=== PATIENT | male | born 1975 | race Caucasian/White ===

== ENCOUNTER 2020-07-09 12:17 | Outpatient (REF) | payer OTHER, SELFPAY ==
[2020-07-09 14:18] LABS: MANUAL DIFF FLAG NO
[2020-07-09 14:25] LABS: Basophils Percent Auto 0.7 % (0-2); Eosinophils Absolute Auto 0.1 X10*3/uL (0.0-0.4); Eosinophils Percent Auto 1.9 % (0-4); Hematocrit 46.2 % (42-52); Hemoglobin 16.3 g/dl (14.0-18.0); Imm Gran Abs Auto 0.02 X10*3/uL (0.00-0.03); Imm Gran Pct Auto 0.4 % (0.0-0.4); Lymphocytes Absolute Auto 1.7 X10*3/uL (1.2-4.9); Lymphocytes Percent Auto 29.7 % (20-40); Mean Corpuscular HGB Conc 35.3 g/dl (31.0-36.0); Mean Corpuscular Hemoglobin 30.9 pg (27.0-33.0); Mean Corpuscular Volume 87.7 fL (80-98); Mean Platelet Volume 9.9 fL (9.4-12.4); Monocytes Absolute Auto 0.6 X10*3/uL (0.1-1.2); Monocytes Percent Auto 9.7 % (2-11); Neutrophils Absolute Auto 3.3 X10*3/uL (2.0-8.3); Neutrophils Percent Auto 57.6 % (45-73); Platelet Count 325 X10*3/uL (160-400); Red Blood Count 5.27 X10*6/uL (4.60-5.80); Red Cell Distribution Width 12.2 % (11.0-16.0); White Blood Count 5.7 X10*3/uL (4.8-10.8)
[2020-07-09 14:29] LABS: Glucose Urine UA NEG (NEG); Leukocyte Esterase Urine NEG (NEG); Nitrite Urine NEG (NEG); PH 5.5 (5.0-8.0); Specific Gravity - Urine >= 1.030 (1.005-1.025); Urine Blood 1+ (NEG); Urine Ketones NEG (NEG); Urine Protein NEG (NEG-TRACE)
[2020-07-09 14:31] LABS: Appearance Urine CLEAR; Color Urine YELLOW
[2020-07-09 15:01] LABS: Alanine Aminotransferase 69 U/L (0-40); Albumin Level 4.7 g/dL (3.5-5.0); Alkaline Phosphatase 75 U/L (39-117); Anion Gap 14 (12-20); Aspartate Amino Transferase 36 U/L (5-37); Bilirubin Total 0.8 mg/dL (0.0-1.0); Blood Urea Nitrogen 13 mg/dL (9-16); Calcium 9.7 mg/dL (8.4-10.2); Carbon Dioxide 26 mmol/L (22-29); Chloride 104 mmol/L (96-108); Cholesterol 216 mg/dL; Estimated Glomerular Filt Rate > 60; Glucose Random 77 mg/dL (60-115); HDL Cholesterol 32 mg/dL; LDL Cholesterol Calculated 152 mg/dl; Potassium 4.2 mmol/l (3.3-5.1); Sodium 140 mmol/L (135-145); Total Protein 7.3 g/dL (6.5-8.0); Triglycerides 162 mg/dL
[2020-07-09 15:08] LABS: Mucus Urine 1+ /LPF; RBC Urine 0-2 /HPF (0); WBC Urine 0 /HPF (0-4)
== END 2020-07-09 12:18 | disposition home or self-care (01) ==
LOC: HO.10HDL 12:17
PROVIDERS: Visit Provider Internal Medicine
DX: Z00.00 Encounter for general adult medical examination without abnormal findings (principal); Z13.220 Encounter for screening for lipoid disorders
CPT/HCPCS: 36415; 80053; 80061; 81001; 85025

== ENCOUNTER 2020-07-13 09:23 | Outpatient (REF) | payer OTHER, SELFPAY | END 2020-07-13 09:24 | disposition home or self-care (01) | LOC: HO.LAB 09:23 | PROVIDERS: Visit Provider Internal Medicine | DX: Z20.822 Contact with and (suspected) exposure to COVID-19 (principal) | CPT/HCPCS: 36415; C9803; U0003 ==

== ENCOUNTER → 2020-10-02 14:53 | Outpatient (BNVA) | payer OTHER, SELFPAY | PROVIDERS: PCP Internal Medicine; Visit Provider Internal Medicine ==

== ENCOUNTER 2020-10-30 15:07 | Outpatient (REF) | payer OTHER, SELFPAY ==
[2020-10-30 15:31] LABS: COVID-19 Test Negative (Negative)
== END 2020-10-30 15:08 | disposition home or self-care (01) ==
LOC: HO.LAB 15:07
PROVIDERS: Visit Provider Internal Medicine
DX: Z20.822 Contact with and (suspected) exposure to COVID-19 (principal)
CPT/HCPCS: 36415; 87635; C9803

== ENCOUNTER 2020-11-06 20:03 | Emergency (ER) | payer OTHER, SELFPAY ==
--- NOTE | ~2020-11-06 | XR_ITS ---
EXAMINATION: XR TIBIA AND FIBULA, LEFT CLINICAL INFORMATION: Fall with pain in the mid tibia. COMPARISON: None TECHNIQUE: AP and lateral views of the left tibia and fibula were obtained. FINDINGS: No fracture of the left tibia or fibula. No focal soft tissue swelling. No radiopaque foreign body. The knee and ankle are grossly unremarkable. XR/XR tibia fibula LT 2V IMPRESSION: Normal left tibia and fibula.
[2020-11-06 20:45] VITALS: BP 135/94; PULSE 74; RESP 16; TEMP 36.7; O2SAT 97; BMI 33.0
--- NOTE | 2020-11-06 22:20 | ED.LOWEXIN ---
HPI - Extremity Injury (Lower) General Chief Complaint: Extremity Injury, Lower Stated Complaint: fall Time Seen by Provider: 11/06/20 22:05 Source: patient Mode of arrival: ambulatory Limitations: no limitations History of Present Illness HPI Narrative: Patient comes emergency room complaining of left britton pain. This evening, patient tripped over some weights that where on his basement. Patient notice bruising swelling and abrasions on his left leg. Patient states the pain is not very intense. Patient states that his made him come. Related Data Home Medications Medication Instructions Recorded Confirmed No Known Home Meds 10/02/20 10/02/20 Allergies Allergy/AdvReac Type Severity Reaction Status Date / Time No Known Allergies Allergy Verified 10/02/20 15:41 [No Known Allergies*] Review of Systems Review of Systems: Constitutional : No Weight loss, No Fever, No Chills, No Night Sweats, No Fatigue, No Malaise ENT/Mouth : No Hearing loss, No Ear Pain, No Nasal Congestion, No Sinus Pain, No Hoarseness, No sore throat, No Rhinorrhea, No Swallowing Difficulty Eyes: No Eye Pain, No Swelling, No Redness, No Foreign Body, No Discharge, No Vision Changes Cardiovascular : No Chest Pain, No SOB, No Dyspnea on Exertion, No Orthopnea, No Edema, No Palpitations Respiratory : No Cough, No Sputum, No Wheezing, No Smoke Exposure, No Dyspnea Gastrointestinal : No Nausea, No Vomiting, No Diarrhea, No Constipation, No abdominal Pain, No Hematochezia, No Melena Genitourinary : no irregular bleeding, No Dysuria, No Urinary Frequency, No Hematuria, No Urinary Incontinence, No Urgency, No Flank Pain, No Urinary Flow Changes, No Hesitancy Musculoskeletal : Left britton pain,, No Myalgias, No Joint Swelling Skin : Multiple ecchymosis and small abrasions to the left leg Neuro : No Weakness, No Numbness, No Paresthesias, No Loss of Consciousness, No Dizziness, No Headache Psych : No Anxiety/Panic, No Depression, No SI/HI/AH/VH, No Social Issues, Heme/Lymph: No Bruising, No Bleeding,No Lymphadenopathy Endocrine : No Polyuria, No Polydipsia, No Temperature Intolerance PMFSH Past Medical History Medical History Obesity AL (obstructive sleep apnea) Social History Social History Advance Directives: No Advance Directives Information Provided: Yes Physical Exam Vital Signs: Vital Signs: Last Vital Signs Temp 98.1 F 11/06/20 20:45 Pulse 74 11/06/20 20:45 Resp 16 11/06/20 20:45 BP 135/94 H 11/06/20 20:45 Pulse Ox 97 11/06/20 20:45 Body Mass Index 33.0 Appearance: Alert. Oriented X3. No acute distress. Eyes: Pupils equal, round and reactive to light. ENT: Pharynx normal. Neck: Normal inspection. Neck supple. No lymph nodes noted. No crepitus CVS: Normal heart rate and rhythm. Pulses normal. Normal S1 and S2 Respiratory: No respiratory distress. Breath sounds normal. No Wheezing. No rales Abdomen: Soft and nontender. No rigidity. No distention. good BS x4 Skin: Skin warm and dry. Febrile 3 cm ecchymosis to the left britton, no significant tenderness to palpation over the tibial surface Extremities: Mild edema to the anterior aspect of the left lower extremity distal aspect, no calf tenderness, no knee or ankle pain. Neuro: Oriented X 3. No motor deficit. No sensory deficit. Moving all extermities. No slurred speech. Course Course Course Narrative: I discussed the x-ray with the patient, no fracture. MDM - Extremity Injury (Lower) Imaging Data Tibia fibula x-ray: Radiologist's impression: No fracture of the left tibia or fibula. No focal soft tissue swelling. No radiopaque foreign body. The knee and ankle are grossly unremarkable. XR/XR tibia fibula LT 2V IMPRESSION: Normal left tibia and fibula. Discharge Plan Discharge Clinical Impression: Traumatic ecchymosis of left lower leg Qualifiers: Encounter type: initial encounter Qualified Code(s): S80.12XA - Contusion of left lower leg, initial encounter Patient Disposition: Home, Self-Care Instructions: Ecchymosis (ED) Additional Instructions: Please follow-up with your primary care physician tomorrow. If you have any worsening or new symptoms, please return to the emergency room or call 911 Prescriptions: No Action No Known Home Meds RF: 0
== END 2020-11-06 23:15 | disposition home or self-care (01) ==
PROVIDERS: Emergency Provider Emergency Medicine; PCP Internal Medicine
DX: S80.12XA Contusion of left lower leg, initial encounter (principal); M79.605 Pain in left leg; S20.111A Abrasion of breast, right breast, initial encounter; X50.0XXA Overexertion from strenuous movement or load, initial encounter; Y93.9 Activity, unspecified; Y92.9 Unspecified place or not applicable; Y99.9 Unspecified external cause status
CPT/HCPCS: 73590; 99283

== ENCOUNTER 2021-05-04 08:20 | Emergency (ER) | payer OTHER, SELFPAY ==
[2021-05-04 08:23] VITALS: BP 144/85; PULSE 72; RESP 16; TEMP 36.7; O2SAT 96
[2021-05-04 08:59] VITALS: BP 144/85; PULSE 72; RESP 18; TEMP 36.7; O2SAT 96; BMI 32.3
--- NOTE | 2021-05-04 09:39 | ED_ITS ---
HPI - URI/Sore Throat General Chief Complaint: Upper Respiratory Symptoms Stated Complaint: sore throat cough headache Time Seen by Provider: 05/04/21 09:04 Source: patient Mode of arrival: ambulatory Limitations: no limitations History of Present Illness HPI Narrative: 45-year-old male who is up-to-date on COVID vaccine presenting to the ED with URI symptoms which include chills, body aches, intermittent headache s, nasal congestion/rhinorrhea, sore throat and dry cough for the past 3 days worse today. Denies recent travel or sick contacts. Denies any measured fevers, dizziness, neck pain/stiffness, chest pain or shortness of breath, sputum production, dyspnea on exertion, orthopnea, nausea/vomiting/diarrhea or abdominal pain, dysuria, rashes or any other symptoms complaints or concerns at this time. MD elicited complaint: cough, sore throat, rhinorrhea and nasal congestion Onset (ago): day(s) (Two days) Consistency: constant and progressively worsening Severity: moderate Description of mucous: clear and watery Able to tolerate fluids by mouth: Yes Exacerbating factors: swallowing Relieving factors: nothing Associated symptoms: chills, myalgias, diaphoresis, headache, rhinorrhea, nasal congestion, sore throat and cough Treatments prior to arrival: none Related Data Previous Rx's Medication Instructions Recorded azithromycin 250 mg tablet See Rx Instructions .ROUTE 05/04/21 .COMPLEX #6 tab codeine 10 mg-guaifenesin 100 mg/5 5 ml PO Q6H PRN #120 ml 05/04/21 mL oral liquid (Guaifenesin AC) cyclobenzaprine 10 mg tablet 10 mg PO Q8H PRN #14 tab 05/04/21 Allergies Allergy/AdvReac Type Severity Reaction Status Date / Time No Known Allergies Allergy Verified 10/02/20 15:41 [No Known Allergies*] Review of Systems Review of Systems: Constitutional : Positive chills/fatigue/malaise, No Weight loss, No Fever, No Night Sweats ENT/Mouth : Positive ear plane/nasal congestion/rhinorrhea/sore throat, No Hearing loss, No Sinus Pain, No Hoarseness, No Swallowing Difficulty Eyes: No Eye Pain, No Swelling, No Redness, No Foreign Body, No Discharge, No Vision Changes Cardiovascular : No Chest Pain, No SOB, No Dyspnea on Exertion, No Orthopnea, No Edema, No Palpitations Respiratory : Positive Cough, No Sputum, No Wheezing, No Smoke Exposure, No Dyspnea Gastrointestinal : No Nausea, No Vomiting, No Diarrhea, No Constipation, No abdominal Pain, No Hematochezia, No Melena Genitourinary : no irregular bleeding, No Dysuria, No Urinary Frequency, No Hematuria, No Urinary Incontinence, No Urgency, No Flank Pain, No Urinary Flow Changes, No Hesitancy Musculoskeletal : No joint pain, No Myalgias, No Joint Swelling Skin : No Skin Lesions, No rash Neuro : No Weakness, No Numbness, No Paresthesias, No Loss of Consciousness, No Dizziness, positive Headache Psych : No Anxiety/Panic, No Depression, No SI/HI/AH/VH, No Social Issues, Heme/Lymph: No Bruising, No Bleeding,No Lymphadenopathy Endocrine : No Polyuria, No Polydipsia, No Temperature Intolerance Yes all other systems are reviewed and are negative [facility], [facility] Past Medical History Medical History Obesity AL (obstructive sleep apnea) Social History Social History Advance Directives: No Advance Directives Information Provided: No Physical Exam Vital Signs: Vital Signs: Last Vital Signs Temp 98.1 F 05/04/21 08:59 Pulse 72 05/04/21 08:59 Resp 18 05/04/21 08:59 BP 144/85 H 05/04/21 08:59 Pulse Ox 96 05/04/21 08:59 Body Mass Index 32.3 vital signs have been reviewed as normal and appeared to be correct. Blood pressure 144/85. Heart rate normal. Respiration rate normal. Temperature normal. Oxygen saturation normal. Appearance: Alert. Oriented X3. No acute distress. Head: Normal external exam. Normocephalic. Atraumatic. Eyes: PERRLA. EOMI. Conjunctiva and sclera normal. Eyelids normal. ENT: EAC normal. TM's Normal. Pharynx normal. Uvula midline. Moist mucous membranes. No trismus noted. No drooling noted. No muffled voice noted. Neck: Normal inspection. Neck supple. FROM. No adenopathy. Thyroid Normal. No meningeal signs. No neck mass noted. CVS: Normal heart rate and rhythm. Heart sound normal. Pulses normal throughout. No murmurs/rales/gallops. Respiratory: No respiratory distress. Painless inspiration. Breath sounds normal. No wheezes/rales/rhonchi noted. Chest nontender. No accessory muscle usage noted or decreased air movement noted. Abdomen: Soft and nontender. Bowel sounds normal in all 4 quadrants. No distention noted. No organomegaly noted. No visible injury noted. Back: Full range of motion noted. No rashes/lesion/induration/fluctuance or signs of infection noted. Skin: Skin warm and dry. Normal skin color. Normal skin turgor. No rashes/lesions/lacerations noted. Extremities: Extremities exhibit normal range of motion. Extremities nontender. Neuro: Oriented X 3. No motor deficit. No sensory deficit. Reflexes normal. Normal steady gait. No focal neuro deficits noted. Vascular: + radial pulses/+ 2 distal pedal pulses/+2 dorsalis pedis b/l. Normal cap refill. No cyanosis noted to upper extremity nails and lower extremity toes nails. Course Course Course Narrative: 45-year-old male who is up-to-date on COVID vaccine presenting to the ED with URI symptoms which include chills, body aches, intermittent headaches, nasal congestion/rhinorrhea, sore throat and dry cough for the past 3 days worse today. Denies recent travel or sick contacts. Denies any measured fevers, dizziness, neck pain/stiffness, chest pain or shortness of breath, sputum production, dyspnea on exertion, orthopnea, nausea/vomiting/diarrhea or abdominal pain, dysuria, rashes or any other symptoms complaints or concerns at this time. Will obtain COVID/rapid strep if negative will DC home with symptomatic treatment instructions return if any new or worsening symptoms to self isolate until symptoms resolve. Patient and family at bedside understand and agree to this plan. MDM - URI/Sore Throat Medical Records Attestation: I reviewed the patient's medical records. Lab Data Attestation: I reviewed the patient's lab results. Labs: Lab Results 05/04/21 05/04/21 Range/Units 09:23 09:23 COVID-19 (CURT) Negative (Negative) COVID-19 Clin Com See Note S. pyogenes GrpA FLAKITA Negative (Negative) Discharge Plan Discharge Clinical Impression: Upper respiratory infection Patient Disposition: Home, Self-Care Instructions: Upper Respiratory Infection (ED) Additional Instructions: You had a negative COVID and a negative rapid strep although if your symptoms just started you should be retested within 5-7 days after symptoms started. Return if any new or worsening symptoms. You should continue to self isolate/quarantine. Follow-up with her primary care provider. Prescriptions: New cyclobenzaprine 10 mg tablet 10 mg PO Q8H PRN (Reason: Muscle spasm) Qty: 14 RF: 0 azithromycin 250 mg tablet See Rx Instructions .ROUTE .COMPLEX Qty: 6 RF: 0 codeine-guaifenesin [Guaifenesin AC] 10-100 mg/5 mL liquid 5 ml PO Q6H PRN (Reason: cold symptoms) Qty: 120 RF: 0 Referrals: Oliver Baugh MD [Primary Care Provider] - 2 days Stand Alone Forms: Work/School Release Print Language: Russian
[2021-05-04 09:49] LABS: Strep A Nucleic Acid Negative (Negative)
[2021-05-04 10:01] LABS: COVID-19 Test Negative (Negative); IDNOW Serial# 9DD0AD1C
== END 2021-05-04 10:29 | disposition home or self-care (01) ==
PROVIDERS: Physician Assistant Medical; Emergency Provider Emergency Medicine; PCP Internal Medicine
DX: J06.9 Acute upper respiratory infection, unspecified (principal); Z20.822 Contact with and (suspected) exposure to COVID-19
CPT/HCPCS: 36415; 87635; 87651; 99283

== ENCOUNTER 2021-09-01 10:22 | Outpatient (REF) | payer OTHER, SELFPAY ==
[2021-09-01 13:31] LABS: MANUAL DIFF FLAG NO
[2021-09-01 13:45] LABS: Basophils Absolute Auto 0.1 X10*3/uL (0.0-0.2); Basophils Percent Auto 0.8 % (0-2); Eosinophils Absolute Auto 0.1 X10*3/uL (0.0-0.4); Eosinophils Percent Auto 1.1 % (0-4); Hemoglobin 15.6 g/dl (14.0-18.0); Imm Gran Abs Auto 0.01 X10*3/uL (0.00-0.03); Imm Gran Pct Auto 0.2 % (0.0-0.4); Lymphocytes Absolute Auto 1.8 X10*3/uL (1.2-4.9); Lymphocytes Percent Auto 28.6 % (20-40); Mean Corpuscular HGB Conc 34.7 g/dl (31.0-36.0); Mean Corpuscular Hemoglobin 30.4 pg (27.0-33.0); Mean Corpuscular Volume 87.7 fL (80.0-98.0); Mean Platelet Volume 9.7 fL (9.4-12.4); Monocytes Absolute Auto 0.6 X10*3/uL (0.1-1.2); Monocytes Percent Auto 8.9 % (2-11); Neutrophils Absolute Auto 3.7 x10*3/uL (2.0-8.3); Neutrophils Percent Auto 60.4 % (45-73); Platelet Count 307 X10*3/uL (160-400); Red Blood Count 5.13 X10*6/uL (4.60-5.80); Red Cell Distribution Width 12.3 % (11.0-16.0); White Blood Count 6.2 X10*3/uL (4.8-10.8)
[2021-09-01 13:51] LABS: Alanine Aminotransferase 21 U/L (0-40); Albumin Level 4.4 g/dL (3.5-5.0); Alkaline Phosphatase 73 U/L (39-117); Anion Gap 11 (12-20); Aspartate Amino Transferase 22 U/L (5-37); Bilirubin Total 0.7 mg/dL (0.0-1.0); Blood Urea Nitrogen 14 mg/dL (9-16); C Reactive Protein 0.04 mg/dL (< or = 0.50); Calcium 9.7 mg/dL (8.4-10.2); Carbon Dioxide 26 mmol/L (22-29); Chloride 106 mmol/L (96-108); Estimated Glomerular Filt Rate > 60; Glucose Random 92 mg/dL (60-115); Potassium 4.3 mmol/L (3.3-5.1); Sodium 139 mmol/L (135-145)
[2021-09-01 14:18] LABS: Influenza A PCR NEGATIVE (Negative); Influenza B PCR NEGATIVE (Negative); Resp Syncy Virus RNA Qual PCR NEGATIVE (Negative); SARS COV2 PCR INHOUSE NEGATIVE (Negative)
== END 2021-09-01 10:23 | disposition home or self-care (01) ==
LOC: HO.10HDL 10:22
PROVIDERS: Visit Provider Internal Medicine
DX: Z20.822 Contact with and (suspected) exposure to COVID-19 (principal); R50.9 Fever, unspecified; M79.10 Myalgia, unspecified site
CPT/HCPCS: 0241U; 36415; 80053; 82550; 85025; 86140

== ENCOUNTER 2022-02-10 08:57 | Outpatient (REF) | payer OTHER, SELFPAY ==
[2022-02-10 09:20] LABS: MANUAL DIFF FLAG NO
[2022-02-10 09:42] LABS: Basophils Percent Auto 0.6 % (0-2); Eosinophils Absolute Auto 0.1 X10*3/uL (0.0-0.4); Eosinophils Percent Auto 1.8 % (0-4); Hematocrit 45.4 % (42.0-52.0); Hemoglobin 16.5 g/dl (14.0-18.0); Imm Gran Abs Auto 0.01 X10*3/uL (0.00-0.03); Imm Gran Pct Auto 0.2 % (0.0-0.4); Lymphocytes Absolute Auto 1.4 X10*3/uL (1.2-4.9); Lymphocytes Percent Auto 28.1 % (20-40); Mean Corpuscular HGB Conc 36.3 g/dl (31.0-36.0); Mean Corpuscular Hemoglobin 31.3 pg (27.0-33.0); Mean Platelet Volume 9.2 fL (9.4-12.4); Monocytes Absolute Auto 0.4 X10*3/uL (0.1-1.2); Monocytes Percent Auto 8.8 % (2-11); Neutrophils Percent Auto 60.5 % (45-73); Platelet Count 337 X10*3/uL (160-400); Red Blood Count 5.28 X10*6/uL (4.60-5.80); Red Cell Distribution Width 12.2 % (11.0-16.0)
[2022-02-10 10:11] LABS: Alanine Aminotransferase 23 U/L (0-40); Albumin Level 4.7 g/dL (3.5-5.0); Alkaline Phosphatase 72 U/L (39-117); Anion Gap 13 (12-20); Aspartate Amino Transferase 24 U/L (5-37); Bilirubin Total 0.9 mg/dL (0.0-1.0); Blood Urea Nitrogen 17 mg/dL (9-16); Calcium 9.8 mg/dL (8.4-10.2); Carbon Dioxide 26 mmol/L (22-29); Chloride 104 mmol/L (96-108); Cholesterol 222 mg/dL; Estimated Glomerular Filt Rate > 60; Glucose Fasting 94 mg/dL (60-99); HDL Cholesterol 36 mg/dL; LDL Cholesterol Calculated 168 mg/dl; Potassium 4.4 mmol/L (3.3-5.1); Sodium 139 mmol/L (135-145); Total Protein 7.4 g/dL (6.5-8.0); Triglycerides 90 mg/dL
== END 2022-02-10 08:58 | disposition home or self-care (01) ==
LOC: HO.LAB 08:57
PROVIDERS: PCP Internal Medicine; Visit Provider Internal Medicine
DX: Z00.00 Encounter for general adult medical examination without abnormal findings (principal)
CPT/HCPCS: 36415; 80053; 80061; 85025

== ENCOUNTER 2022-10-19 11:35 | Outpatient (REF) | payer OTHER, SELFPAY ==
[2022-10-19 14:02] LABS: Alanine Aminotransferase 30 U/L (0-40); Albumin Level 4.5 g/dL (3.5-5.0); Alkaline Phosphatase 85 U/L (39-117); Anion Gap 11 (12-20); Aspartate Amino Transferase 26 U/L (5-37); Bilirubin Total 0.8 mg/dL (0.0-1.0); Blood Urea Nitrogen 15 mg/dL (9-16); Calcium 9.5 mg/dL (8.4-10.2); Carbon Dioxide 27 mmol/L (22-29); Chloride 108 mmol/L (96-108); Cholesterol 130 mg/dL; Estimated Glomerular Filt Rate > 60; Glucose Fasting 91 mg/dL (60-99); HDL Cholesterol 30 mg/dL; LDL Cholesterol Calculated 85 mg/dl; Potassium 4.3 mmol/L (3.3-5.1); Sodium 142 mmol/L (135-145); Total Protein 6.9 g/dL (6.5-8.0); Triglycerides 75 mg/dL
== END 2022-10-19 11:36 | disposition home or self-care (01) ==
LOC: HO.10HDL 11:35
PROVIDERS: Visit Provider Internal Medicine
DX: I10 Essential (primary) hypertension (principal); E78.00 Pure hypercholesterolemia, unspecified
CPT/HCPCS: 36415; 80053; 80061; 82550

== ENCOUNTER 2022-10-21 15:32 | Outpatient (REF) | payer OTHER, SELFPAY ==
[2022-10-21 17:13] LABS: C Reactive Protein 0.11 mg/dL (< or = 0.50)
[2022-10-21 17:36] LABS: Erythrocyte Sedimentation Rate 1 MM/HR (0-15)
== END 2022-10-21 15:33 | disposition home or self-care (01) ==
LOC: HO.LAB 15:32
PROVIDERS: PCP Internal Medicine; Visit Provider Internal Medicine
DX: R74.8 Abnormal levels of other serum enzymes (principal)
CPT/HCPCS: 36415; 82550; 85652; 86140

== ENCOUNTER 2022-11-03 10:33 | Outpatient (REF) | payer OTHER, SELFPAY | END 2022-11-03 10:34 | disposition home or self-care (01) | LOC: HO.10HDL 10:33 | PROVIDERS: Visit Provider Internal Medicine | DX: R74.8 Abnormal levels of other serum enzymes (principal) | CPT/HCPCS: 36415; 82550 ==

== ENCOUNTER → 2022-11-10 15:36 | Outpatient (BNVA) | payer OTHER, SELFPAY | PROVIDERS: PCP Internal Medicine; Visit Provider Surgery ==

== ENCOUNTER 2022-12-03 05:47 | Day surgery (SDC) | payer OTHER, SELFPAY ==
--- NOTE | 2022-12-02 09:02 | HO.ANESPROP2 ---
Documented by User: Saskia Shields NP 12/02/22 09:05 HPI - Anesthesia Eval Consult details Narrative: 47yo M for Right Excision Upper Medial Arm Lipoma [facility] Active Problems Active Problems: All Active Problems (Updated 11/30/22 @ 16:40 by Kathleen Juarez, ALVARO) Lipoma of right upper extremity (Acute) AL (obstructive sleep apnea) (Acute) Obesity (Acute) Past Medical History Medical History (Updated 11/30/22 @ 16:40 by Kathleen Juarez RN) Elevated cholesterol Obesity AL (obstructive sleep apnea) Social History Social History Alcohol intake: former Year quit: 2019 Patient Tobacco Use Status: Never used Tobacco Use of substances other than those prescribed or required for medical reasons: No Are you DNR?: No Advance Directives: No Advance Directives Information Provided: Yes Recently lost weight without trying: No Nutrition Risks: No Nutritional Risk Meds Allergies Allergy/AdvReac Type Severity Reaction Status Date / Time No Known Allergies Allergy Verified 11/30/22 16:39 [No Known Allergies*] Home Medications Medication Instructions Recorded Confirmed Last Taken Type atorvastatin 10 mg tablet 10 mg PO DAILY 11/10/22 11/30/22 Unknown History Exam Exam Date and Time: December 02, [id number] Pertinent Lab Results Pertinent Lab Results: Laboratory Tests 02/10/22 10/19/22 09:18 11:42 WBC 5.0 Hgb 16.5 Hct 45.4 Plt Count 337 Sodium 142 Potassium 4.3 Chloride 108 Carbon Dioxide 27 BUN 15 Creatinine 0.90 Assessment and Plan Assessment Anesthesia Assessment: Chart Reviewed Documented by User: Thanh Silva MD 12/03/22 07:50 [facility] Past Medical History Medical History (Updated 11/30/22 @ 16:40 by Kathleen Juarez RN) Elevated cholesterol Obesity AL (obstructive sleep apnea) Family History Family history of problems with anesthesia: No Surgical History History of Problems with Anesthesia: No Social History Social History Alcohol intake: former Year quit: 2019 Patient Tobacco Use Status: Never used Tobacco Use of substances other than those prescribed or required for medical reasons: No Are you DNR?: No Advance Directives: No Advance Directives Information Provided: Yes Recently lost weight without trying: No Nutrition Risks: No Nutritional Risk Meds Allergies Allergy/AdvReac Type Severity Reaction Status Date / Time No Known Allergies Allergy Verified 11/30/22 16:39 [No Known Allergies*] Home Medications Medication Instructions Recorded Confirmed Last Taken Type atorvastatin 10 mg tablet 10 mg PO DAILY 11/10/22 11/30/22 Unknown History Exam Airway Mallampati Class: I TM Dist: >3cm Neck ROM: Full Loose/Missing/Broken Teeth: No Heart: ok Lungs: ok Assessment and Plan Assessment Anesthesia Assessment: Anesthesia Plan Discussed Final Anesthetic Review Family History of Problems with Anesthesia: No History of Problems with Anesthesia: No NPO: Yes ASA Class: III Final Preanesthetic Review: No Changes in Pt Med Stat, Meds/Allgs Chart Reviewed, Consent Obtained/Reviewed and Anes Risks/Benef Reviewed Patient Risk: Intermediate Procedure Risk: Low Anesthetic Plan Anesthetic Plan: MAC: and Agree w/ Assess. and Plan Disposition: Standard PACU
[2022-12-03 06:14] VITALS: BMI 32.7
[2022-12-03 06:24] VITALS: BP 126/86; PULSE 57; RESP 16; TEMP 36.5; O2SAT 96
--- NOTE | 2022-12-03 06:48 | MHC.SHP ---
Pre-Procedural Eval Section A Date of Service: 12/03/22 The patient is an INPATIENT: No The History & Physical has been completed within 30 days and I have reviewed it.: Yes Section B Chief Complaint: Benign lipomatous neoplasm of skin and subcutaneou Allergies: Allergies Allergy/AdvReac Type Severity Reaction Status Date / Time No Known Allergies Allergy Verified 11/30/22 16:39 [No Known Allergies*] Plan I have reviewed the history and physical and performed a pertinent physical examination on my patient. No changes have occurred unless specified. Time Spent With Patient Time: Total time managing care of this patient today ____ minutes.
--- NOTE | 2022-12-03 06:51 | W.PM.OPN ---
Operative Note Operative Note Date of Service: 12/03/22 Narrative: Preop diagnosis: [Symptomatic lipoma right upper medial arm] Postop diagnosis: [Same4.0cm x 2.7 cm lipoma with intermediate closure 4 cm incision] Procedure: [Excision] Surgeon: Gary Maldonado MD Assist: [Saumya Choe RN] Anesthesia: [MAC, Local: Marcaine, 0.5% with epi/Lidocaine, 1% plain 50/50] Estimated blood loss: [3cc] Specimen: [Right upper extremity lipoma] Intraoperative findings: [Lipoma adherent to the triceps fascia, 2.7 x 4.0 cm] Indications: [The patient is a 47-year-old gentleman with a slowly enlarging lipoma in his right upper medial arm. In the office, he was extremely anxious and focused on potential complications related to anesthesia and the procedure, so we did discuss continued observation. He is right-hand dominant and reports local symptoms of pressure especially with heavy lifting, which is required by both jobs he is currently working. We discussed options of continued observation versus excision with the inherent risks of scar, bleeding, infection, recurrence, seroma and other complications such as persistence of some of his symptoms that may not be related to the lipoma were also reviewed as well as the fact that complications could require another procedure. Given the patient's anxiety, my recommendation to do this with MAC was made for patient's safety. Activity restrictions including the need for light duty in the fact that he is not disabled was also discussed and apparently understood. Patient seemed understand his options and wanted to proceed.] Procedure: [The patient was identified in the preoperative holding by myself and his operative site on his right upper medial arm marked by myself. He was brought into operating suite 3 placed supine on the table with his right arm abducted and MAC administered with excellent effect. Patient received Ancef, 2 g IV and his right upper arm was widely prepped in the usual manner for surgery with ChloraPrep. After ensuring good sedation, local was infiltrated with excellent effect and a 4 cm incision made sharply into the subcutaneous tissues. Hemostasis was obtained with electrocautery. The lipoma was circumferentially dissected clearly down to the triceps fascia where was excised. The operative field was irrigated inspected for hemostasis which was good. Additional local was infiltrated and an intermediate closure using interrupted 3-0 Polysorb sutures to obliterate the space where the lipoma had been removed and interrupted 4-0 polypropylene sutures on the skin was performed with good tissue approximation. There was then washed and dried, bacitracin and a dressing applied. Patient tolerated the procedure well was sent to the recovery in stable condition. All sponge instrument counts were correct x2. At the patient's request, I contacted his Zelda at [phone] to review activity restrictions and my recommendation for him to not work until Wednesday to minimize bleeding and postoperative complications; if his employer is unable to accommodate light duty, he will need to be out of work for a week. Pain management and hygiene/dressing was also reviewed; her questions seemed to be answered.]
[2022-12-03 08:16] VITALS: BP 128/84; PULSE 76; RESP 16; TEMP 36.6; O2SAT 95
[2022-12-03 08:31] VITALS: BP 117/81; PULSE 65; RESP 16; TEMP 36.8; O2SAT 96
== END 2022-12-03 08:57 | disposition home or self-care (01) ==
LOC: HO.SSS 05:47
PROVIDERS: PCP Internal Medicine; Visit Provider Surgery
PROC: (CPT 24071; principal; 2022-12-03 07:30)
DX: D17.21 Benign lipomatous neoplasm of skin and subcutaneous tissue of right arm (principal); E66.8 Other obesity; Z68.32 Body mass index [BMI] 32.0-32.9, adult; E78.00 Pure hypercholesterolemia, unspecified; G47.33 Obstructive sleep apnea (adult) (pediatric); Z79.899 Other long term (current) drug therapy; Z87.891 Personal history of nicotine dependence
CPT/HCPCS: 24071; 88304; J0690; J2250; J2795; J3010

== ENCOUNTER → 2022-12-11 08:54 | Outpatient (BNVA) | payer OTHER, SELFPAY | PROVIDERS: Visit Provider Surgery ==

== ENCOUNTER 2023-07-02 19:52 | Emergency (ER) | payer OTHER, SELFPAY ==
[2023-07-02 20:36] VITALS: BP 153/100; PULSE 65; RESP 16; TEMP 36.6; O2SAT 95; BMI 32.7
--- NOTE | 2023-07-02 20:36 | ED.HA ---
HPI - Headache General Chief Complaint: Headache Stated Complaint: headache, fever? Time Seen by Provider: 07/02/23 22:47 Source: patient Mode of arrival: ambulatory Limitations: no limitations History of Present Illness HPI Narrative: 47 yo male with PMH of HLD, HTN but monitorin and not on medications here with c/o being at work this AM and starting with a really bad headache that worsened throughout the AM over hours. He took advil and it improved. He also notes his body is tired and he has some aches. He feels much better now. He is vaccinated for COVID x 3. He tested positive for COVID in our waiting room. He is not on blood thinners. His headache after OTC medication is almost gone and he feels much better now. He has no n/v numbness weakness change in vision MD elicited complaint: headache Onset (ago): hour(s) (early this AM) Onset description: gradually and while at rest Location: generalized Severity: severe Quality & Timing: throbbing and progressively worsening Exacerbating factors: none Relieving factors: NSAIDs Context: occurred at rest Associated symptoms: other (has body aches and fatigue) Treatments prior to arrival: ibuprofen Related Data Home Medications Medication Instructions Recorded Confirmed atorvastatin 10 mg tablet 10 mg PO DAILY 11/10/22 11/30/22 Previous Rx's Medication Instructions Recorded oxycodone 5 mg tablet 5 mg PO Q4H PRN pain #14 tabs 12/03/22 Allergies Allergy/AdvReac Type Severity Reaction Status Date / Time No Known Allergies Allergy Verified 07/02/23 20:36 [No Known Allergies*] Review of Systems Review of Systems: Constitutional : No Fever, No Chills, pos Fatigue ENT/Mouth : No sore throat, No Rhinorrhea Eyes: No Eye Pain, No Swelling, No Redness Cardiovascular : No Chest Pain, No SOB, No Dyspnea on Exertion Respiratory : No Cough, No Sputum Gastrointestinal : No Nausea, No Vomiting, No Diarrhea, No abdominal Pain Genitourinary : No Dysuria, No Urinary Frequency, No Hematuria, Musculoskeletal : No joint pain, pos Myalgias, No Joint Swelling Skin : No Skin Lesions, No rash Neuro : No Weakness, No Numbness, No Dizziness, positive Headache Psych : No Anxiety/Panic, No Depression All other systems reviewed and are negative [facility] Past Medical History Attestation statement: The following information was validated with the patient. Source: old records reviewed Onset Date is defined in the Problem List Problems that require an onset date and time if occurred within 24 hrs of arrival to the ED Aortic Dissection and Rupture; Neurologic impairment; Cardiopulmonary Arrest; Endotracheal Intubation; Insertion or Replacement of Mechanical Circulatory Assist Device Medical History Elevated cholesterol AL (obstructive sleep apnea) Obesity Surgical History History of excision of mass (12/03/22) Social History Social History Alcohol intake: former Year quit: 2019 Patient Tobacco Use Status: Never used Tobacco Smoked in Last 30 Days: No Use of substances other than those prescribed or required for medical reasons: Yes Substance Use Type: Marijuana Substance Use Frequency: Chronic Longstanding Advance Directives: No Advance Directives Information Provided: No Physical Exam Vital Signs: Vital Signs: Last Vital Signs Temp 98.0 F 07/02/23 22:45 Pulse 64 07/02/23 22:45 Resp 18 07/02/23 22:45 BP 137/88 07/02/23 22:45 Pulse Ox 97 07/02/23 22:45 O2 Del Method Room Air 07/02/23 22:45 BMI result Body Mass Index 32.7 Appearance: Alert. Oriented X3. No acute distress. Eyes: Pupils equal, round and reactive to light. ENT: Pharynx normal. Neck: Normal inspection. Neck supple. no meningeal signs CVS: Normal heart rate and rhythm. Pulses normal. Respiratory: No respiratory distress. Breath sounds normal. Abdomen: Soft and nontender. Skin: Skin warm and dry. Normal skin color. Normal skin turgor. Extremities: No lower extremity edema. No calf ttp Neuro: Oriented X 3. No motor deficit. No sensory deficit. CN2-12 intact Course Course Course Narrative: This is an RME: Additional HPI, ROS, PE not included below will be deferred to primary provider. Patient is a 47-year-old male presents emergency department for evaluation of headache. He did not take any medications until just prior to arrival when he took Advil. Denies dizziness, lightheadedness, vision changes, neck pain, neck stiffness chest pain, SOB. He does state that he has frequent headaches, but this feels worse. Plan: viral testing, labs Medical Decision Making Medical Decision Making [facility] Narrative: 47 yo male with PMH of HTN, HLD here with c/o headache this AM that was gradual but worsened he is NV intact and it resolved after advil. He is not toxic, no meningeal signs, normal neuro exam at this time suspect COVID 19 as cause and likely fever. I wouldn't suspect his headache would resolve if it was SAH in setting of one dose of advil. Will DC home with precautions. He declines paxlovid. Differential Diagnosis Differential Diagnoses: The differential diagnosis associated with the presentation includes viral syndrome, tension headache, fevers Admission/Observation Consideration of admission/observation: Escalation of care including admission/observation considered VS stable, headache resolved - not consistent with meningitis - SAH wouldn't expect symptoms to improve with just advil and he has reason to have headache with COVID Lab Data [facility] Lab Attestation statement: I reviewed the patient's lab results. 07/02/23 21:33 07/02/23 21:33 Labs: Lab Results 07/02/23 Range/Units 21:33 WBC 6.8 (4.8-10.8) X10*3/uL RBC 5.14 (4.60-5.80) X10*6/uL Hgb 16.0 (14.0-18.0) g/dl Hct 43.9 (42.0-52.0) % MCV 85.4 (80.0-98.0) fL MCH 31.1 (27.0-33.0) pg MCHC 36.4 H (31.0-36.0) g/dl RDW 12.2 (11.0-16.0) % Plt Count 289 (160-400) X10*3/uL MPV 9.0 L (9.4-12.4) fL Immature Gran % (Auto) 0.3 (0.0-0.4) % Neut % (Auto) 72.8 (45-73) % Lymph % (Auto) 16.6 L (20-40) % Houghton % (Auto) 7.2 (2-11) % Eos % (Auto) 2.2 (0-4) % Baso % (Auto) 0.9 (0-2) % Lymph # (Auto) 1.1 L (1.2-4.9) X10*3/uL Houghton # (Auto) 0.5 (0.1-1.2) X10*3/uL Eos # (Auto) 0.2 (0.0-0.4) X10*3/uL Baso # (Auto) 0.1 (0.0-0.2) X10*3/uL Abs Immat Gran (auto) 0.02 (0.00-0.03) X10*3/uL Absolute Neuts (auto) 4.9 (2.0-8.3) x10*3/uL Absolute Nucleated RBC 0.000 (0.0-0.012) X10*3/uL Nucleated RBC % (auto) 0.0 (0.0-0.2) /100WBC Sodium 141 (135-145) mmol/L Potassium 3.8 (3.3-5.1) mmol/L Chloride 107 (96-108) mmol/L Carbon Dioxide 27 (22-29) mmol/L Anion Gap 11 L (12-20) BUN 15 (9-16) mg/dL Creatinine 0.82 (0.5-1.4) mg/dL Estim Creat Clear Calc 137.0 Estimated GFR > 60 Random Glucose 136 H (60-115) mg/dL Calcium 9.1 (8.4-10.2) mg/dL Total Bilirubin 0.6 (0.0-1.0) mg/dL AST 21 (5-37) U/L ALT 27 (0-40) U/L Alkaline Phosphatase 76 (39-117) U/L Total Protein 7.1 (6.5-8.0) g/dL Albumin 4.5 (3.5-5.0) g/dL COVID-19 (CURT) Positive A (Negative) COVID-19 Clin Com See Note Influenza Type A (FLAKITA) Negative (Negative) Influenza Type B ([facility]AKITA) Negative (Negative) Influenza A & B Note See Note External Record Review External record reviewed: Office record Prescription Management I considered prescription management with: Antiviral (patient declined paxlovid) Discharge Plan Discharge Clinical Impression: COVID-19 Patient Disposition: Home, Self-Care Instructions: COVID-19 (Coronavirus Disease 2019) (ED) Additional Instructions: wear a mask, protect others. return for chest pain, trouble breathing, confusion, inability to eat or drink. worsening headache or any other concerns. tylenol and motrin is okay Prescriptions: No Action oxycodone 5 mg tablet 5 mg PO Q4H PRN (Reason: pain) Qty: 14 0RF Rx Instructions: Partial Fill upon patient request. atorvastatin 10 mg tablet 10 mg PO DAILY Stand Alone Forms: Work/School Release
[2023-07-02 21:39] LABS: MANUAL DIFF FLAG NO
[2023-07-02 21:40] LABS: Basophils Absolute Auto 0.1 X10*3/uL (0.0-0.2); Basophils Percent Auto 0.9 % (0-2); Eosinophils Absolute Auto 0.2 X10*3/uL (0.0-0.4); Eosinophils Percent Auto 2.2 % (0-4); Hematocrit 43.9 % (42.0-52.0); Imm Gran Abs Auto 0.02 X10*3/uL (0.00-0.03); Imm Gran Pct Auto 0.3 % (0.0-0.4); Lymphocytes Absolute Auto 1.1 X10*3/uL (1.2-4.9); Lymphocytes Percent Auto 16.6 % (20-40); Mean Corpuscular HGB Conc 36.4 g/dl (31.0-36.0); Mean Corpuscular Hemoglobin 31.1 pg (27.0-33.0); Mean Corpuscular Volume 85.4 fL (80.0-98.0); Monocytes Absolute Auto 0.5 X10*3/uL (0.1-1.2); Monocytes Percent Auto 7.2 % (2-11); Neutrophils Absolute Auto 4.9 x10*3/uL (2.0-8.3); Neutrophils Percent Auto 72.8 % (45-73); Platelet Count 289 X10*3/uL (160-400); Red Blood Count 5.14 X10*6/uL (4.60-5.80); Red Cell Distribution Width 12.2 % (11.0-16.0); White Blood Count 6.8 X10*3/uL (4.8-10.8)
[2023-07-02 21:54] LABS: Alanine Aminotransferase 27 U/L (0-40); Albumin Level 4.5 g/dL (3.5-5.0); Alkaline Phosphatase 76 U/L (39-117); Anion Gap 11 (12-20); Aspartate Amino Transferase 21 U/L (5-37); Bilirubin Total 0.6 mg/dL (0.0-1.0); Blood Urea Nitrogen 15 mg/dL (9-16); Calcium 9.1 mg/dL (8.4-10.2); Carbon Dioxide 27 mmol/L (22-29); Chloride 107 mmol/L (96-108); Estimated Glomerular Filt Rate > 60; Glucose Random 136 mg/dL (60-115); Potassium 3.8 mmol/L (3.3-5.1); Sodium 141 mmol/L (135-145); Total Protein 7.1 g/dL (6.5-8.0)
[2023-07-02 21:57] LABS: IDNOW Serial# 16C4AD1C
[2023-07-02 21:58] LABS: COVID-19 Test Positive (Negative); IDNOW Serial# 55D5AD1C; Influenza A Negative (Negative); Influenza B2 Negative (Negative)
[2023-07-02 22:45] VITALS: BP 137/88; PULSE 64; RESP 18; TEMP 36.7; O2SAT 97
== END 2023-07-02 23:17 | disposition home or self-care (01) ==
PROVIDERS: Nurse Practitioner Family; Emergency Provider Emergency Medicine; PCP Internal Medicine
DX: U07.1 COVID-19 (principal); R51.9 Headache, unspecified; R50.9 Fever, unspecified; Z79.899 Other long term (current) drug therapy
CPT/HCPCS: 80053; 85025; 87502; 87635; 99283; 99284

== ENCOUNTER 2023-07-07 14:45 | Outpatient (REF) | payer OTHER, SELFPAY ==
[2023-07-07 14:58] LABS: MANUAL DIFF FLAG NO
[2023-07-07 15:49] LABS: Basophils Absolute Auto 0.1 X10*3/uL (0.0-0.2); Basophils Percent Auto 0.9 % (0-2); Eosinophils Absolute Auto 0.1 X10*3/uL (0.0-0.4); Eosinophils Percent Auto 1.7 % (0-4); Hematocrit 47.9 % (42.0-52.0); Hemoglobin 17.1 g/dl (14.0-18.0); Imm Gran Abs Auto 0.02 X10*3/uL (0.00-0.03); Imm Gran Pct Auto 0.3 % (0.0-0.4); Lymphocytes Absolute Auto 1.8 X10*3/uL (1.2-4.9); Lymphocytes Percent Auto 25.5 % (20-40); Mean Corpuscular HGB Conc 35.7 g/dl (31.0-36.0); Mean Corpuscular Hemoglobin 30.6 pg (27.0-33.0); Mean Corpuscular Volume 85.7 fL (80.0-98.0); Mean Platelet Volume 9.2 fL (9.4-12.4); Monocytes Absolute Auto 0.6 X10*3/uL (0.1-1.2); Monocytes Percent Auto 8.1 % (2-11); Neutrophils Absolute Auto 4.5 x10*3/uL (2.0-8.3); Neutrophils Percent Auto 63.5 % (45-73); Platelet Count 326 X10*3/uL (160-400); Red Blood Count 5.59 X10*6/uL (4.60-5.80); Red Cell Distribution Width 12.1 % (11.0-16.0)
[2023-07-07 16:39] LABS: Alanine Aminotransferase 22 U/L (0-40); Albumin Level 4.8 g/dL (3.5-5.0); Alkaline Phosphatase 81 U/L (39-117); Anion Gap 11 (12-20); Aspartate Amino Transferase 19 U/L (5-37); Bilirubin Total 0.7 mg/dL (0.0-1.0); Blood Urea Nitrogen 14 mg/dL (9-16); Calcium 10.1 mg/dL (8.4-10.2); Carbon Dioxide 31 mmol/L (22-29); Chloride 104 mmol/L (96-108); Cholesterol 160 mg/dL (<200); Estimated Glomerular Filt Rate > 60; Glucose Fasting 84 mg/dL (60-99); HDL Cholesterol 31 mg/dL (>40); LDL Cholesterol Calculated 106 mg/dL (<100); Potassium 4.2 mmol/L (3.3-5.1); Sodium 142 mmol/L (135-145); Total Protein 7.6 g/dL (6.5-8.0); Triglycerides 115 mg/dL (<150)
== END 2023-07-07 14:46 | disposition home or self-care (01) ==
LOC: HO.LAB 14:45
PROVIDERS: PCP Internal Medicine; Visit Provider Internal Medicine
DX: I10 Essential (primary) hypertension (principal); E78.00 Pure hypercholesterolemia, unspecified; G47.33 Obstructive sleep apnea (adult) (pediatric)
CPT/HCPCS: 36415; 80053; 80061; 85025

== ENCOUNTER 2023-10-20 15:45 | Outpatient (REF) | payer OTHER, SELFPAY ==
[2023-10-20 17:43] LABS: Urine Cytology See Pathology rpt
[2023-10-20 17:56] LABS: Appearance Urine Clear; Color Urine Yellow; Glucose Urine UA Negative (Negative); Leukocyte Esterase Urine Negative (Negative); Nitrite Urine Negative (Negative); Specific Gravity - Urine 1.025 (1.005-1.025); UMIC TRIGGER UA YES; Urine Blood Trace (Negative); Urine Ketones Trace mg/dL (Negative); Urine Protein Negative (Neg-Trace)
[2023-10-20 18:00] LABS: Bacteria Urine None Seen (None Seen); Hyaline Casts Urine 0-2 /LPF (0-2); Squamous Epithelial Cell Urine 0-2 /HPF (0-2); WBC Urine 0-5 /HPF (0-5)
[2023-10-20 18:00] LABS: Anion Gap 13 (12-20); Blood Urea Nitrogen 16 mg/dL (9-16); C Reactive Protein < 0.10 mg/dL (< or = 0.50); Calcium 9.4 mg/dL (8.4-10.2); Carbon Dioxide 25 mmol/L (22-29); Chloride 107 mmol/L (96-108); Estimated Glomerular Filt Rate > 60; Glucose Random 85 mg/dL (60-115); Potassium 3.8 mmol/L (3.3-5.1); Sodium 141 mmol/L (135-145)
== END 2023-10-20 15:46 | disposition home or self-care (01) ==
LOC: HO.LAB 15:45
PROVIDERS: PCP Internal Medicine; Visit Provider Internal Medicine
DX: I10 Essential (primary) hypertension (principal); R31.9 Hematuria, unspecified
CPT/HCPCS: 36415; 80048; 81001; 82550; 86140; 88112

== ENCOUNTER 2024-07-18 11:49 | Outpatient (REF) | payer OTHER, SELFPAY ==
[2024-07-18 12:07] LABS: MANUAL DIFF FLAG NO
[2024-07-18 12:32] LABS: Basophils Absolute Auto 0.1 X10*3/uL (0.0-0.2); Basophils Percent Auto 0.9 % (0-2); Eosinophils Absolute Auto 0.2 X10*3/uL (0.0-0.4); Eosinophils Percent Auto 3.6 % (0-4); Hematocrit 46.4 % (42.0-52.0); Hemoglobin 16.3 g/dl (14.0-18.0); Imm Gran Abs Auto 0.02 X10*3/uL (0.00-0.03); Imm Gran Pct Auto 0.4 % (0.0-0.4); Lymphocytes Absolute Auto 1.7 X10*3/uL (1.2-4.9); Lymphocytes Percent Auto 31.1 % (20-40); Mean Corpuscular HGB Conc 35.1 g/dl (31.0-36.0); Mean Corpuscular Hemoglobin 30.8 pg (27.0-33.0); Mean Corpuscular Volume 87.7 fL (80.0-98.0); Mean Platelet Volume 9.2 fL (9.4-12.4); Monocytes Absolute Auto 0.5 X10*3/uL (0.1-1.2); Monocytes Percent Auto 8.6 % (2-11); Neutrophils Percent Auto 55.4 % (45-73); Platelet Count 290 X10*3/uL (160-400); Red Blood Count 5.29 X10*6/uL (4.60-5.80); Red Cell Distribution Width 12.4 % (11.0-16.0); White Blood Count 5.3 X10*3/uL (4.8-10.8)
[2024-07-18 13:10] LABS: Alanine Aminotransferase 59 U/L (0-40); Albumin Level 4.5 g/dL (3.5-5.0); Alkaline Phosphatase 67 U/L (39-117); Anion Gap 5 (12-20); Aspartate Amino Transferase 37 U/L (5-37); Bilirubin Total 0.8 mg/dL (0.0-1.0); Blood Urea Nitrogen 14 mg/dL (9-16); Calcium 9.1 mg/dL (8.4-10.2); Carbon Dioxide 31 mmol/L (22-29); Chloride 109 mmol/L (96-108); Cholesterol 138 mg/dL (<200); Estimated Glomerular Filt Rate > 60; Glucose Fasting 82 mg/dL (60-99); HDL Cholesterol 28 mg/dL (>40); LDL Cholesterol Calculated 93 mg/dL (<100); Potassium 4.2 mmol/L (3.3-5.1); Sodium 141 mmol/L (135-145); Total Protein 7.3 g/dL (6.5-8.0); Triglycerides 87 mg/dL (<150)
[2024-07-18 13:30] LABS: Prostate Specific Antigen 0.52 ng/mL (<0.05-4.0)
== END 2024-07-18 11:50 | disposition home or self-care (01) ==
LOC: HO.LAB 11:49
PROVIDERS: PCP Internal Medicine; Visit Provider Internal Medicine
DX: I10 Essential (primary) hypertension (principal); E78.00 Pure hypercholesterolemia, unspecified; Z12.5 Encounter for screening for malignant neoplasm of prostate
CPT/HCPCS: 36415; 80053; 80061; 84153; 85025

== ENCOUNTER 2024-10-30 08:03 | Outpatient (REF) | payer OTHER, SELFPAY ==
[2024-10-30 12:54] LABS: Anion Gap 11 (12-20); Blood Urea Nitrogen 13 mg/dL (9-16); Calcium 9.1 mg/dL (8.4-10.2); Carbon Dioxide 29 mmol/L (22-29); Chloride 107 mmol/L (96-108); Estimated Glomerular Filt Rate > 60; Glucose Random 80 mg/dL (60-115); Potassium 3.8 mmol/L (3.3-5.1); Sodium 143 mmol/L (135-145)
[2024-10-30 13:59] LABS: Estimated Average Glucose 108 mg/dL; Hemoglobin A1C 136.5525 umol/L; Hemoglobin A1c % 5.4 % (<6.0)
== END 2024-10-30 08:04 | disposition home or self-care (01) ==
LOC: HO.10HDL 08:03
PROVIDERS: PCP Physician Assistant; Visit Provider Physician Assistant
DX: G47.33 Obstructive sleep apnea (adult) (pediatric) (principal); I10 Essential (primary) hypertension; E78.5 Hyperlipidemia, unspecified; E66.9 Obesity, unspecified; Z12.11 Encounter for screening for malignant neoplasm of colon; Z13.1 Encounter for screening for diabetes mellitus
CPT/HCPCS: 36415; 80048; 83036

== ENCOUNTER 2024-10-30 08:03 | Outpatient (AMB) | payer OTHER, SELFPAY ==
--- OUTSIDE RECORDS SUMMARY | 2024-10-30 08:08 | XMS_ITS ---
Author Name [facility] Organization Unknown Care Team Organization Name Specialty Phone Email Start Date End [facility] te [facility] ([facility]
--- NOTE | 2024-10-30 08:12 | A.OFFPC_ITS ---
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 Required: No Accompanied by: Self / Same As Patient Allergies No Known Allergies [No Known Allergies*] Allergy (Verified 10/30/24 08:12) Tobacco use date assessed: 10/30/24 Dental Screening Dental Screen Date: 10/30/24 Did you have a dental visit in the last 12 months?: Yes Did you have a dental problem in the last 6 months where you did not have access to dental care?: No Was dental information given to patient?: Patient has dentist HPI HPI Comments History of Present Illness Details History of Present Illness The patient is a 49-year-old male presenting with requests related to a routine follow-up and scheduling a 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 He has a history of Obstructive Sleep Apnea, currently not using CPAP due to financial constraints impacting filter replacement, leading to concerns regarding bacterial contamination and subsequent health risks associated with untreated apnea. Hypertension is managed with Losartan, noted to be effective as current blood pressure measures in an optimal range despite the missed dose today. No side effects such as a dry cough are reported. Hyperlipidemia is being managed with Atorvastatin, with previous lipid levels well controlled, though diet adherence remains challenging with predominantly fast-food intake due to familial and financial circumstances. 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 He has arranged for a pending colonoscopy at the indicated venue. Prior sleep study was conducted three to four years prior, establishing initial apnea diagnosis. Review of Systems - Respiratory System: Reports issues wit h CPAP usage but no active complaints. - Cardiovascular System: Denies dry coug h or other side effects from medication. - Musculoskeletal System: Reports lower back pain related to work injury. - Nutrition/Diet: Reports difficulty adh ering to a healthy diet due to socioeconomic factors. - Gastrointestinal System: No current co mplaints but mentions a scheduled colonoscopy. Vital Signs - Blood Pressure: 118/84 Health Maintenance - Colonoscopy scheduled for December 01 - Dietary counseling focusing on low-fat and lower-sodium food options - Encouragement to use the Patient Param l for communication and access to test results and appointments Physical Exam Constitutional: Awake and alert, no apparent distress Heart: RRR, S1S2, no murmurs, no edema Lungs: CTA bilaterally, no wheezing Extremities: No calf tenderness Skin: Warm and dry Neuro: Alert and oriented x 3 Assesment/Plan Patient was informed and verbally consented to the use of an ambient scribe for clinic note documentation during this visit. 1. Obstructive Sleep Apnea Scheduling a diagnostic sleep study is prescribed given the non-compliance issue introduced by financial barriers, with supplementary efforts to identify cost- effective CPAP supplies. This is essential for achieving DOT-certification for resuming work activities. 2. Hypertension Continuation of Losartan therapy is affirmed, supported by stable blood pressure readings. Kidney health and electrolyte monitoring aim to counter medication-induced changes, especially with potassium.Low sodium diet discussed 3. Hyperlipidemia Atorvastatin use is maintained, enhancing it with dietary recommendations focusing on lower sodium and fat intake amidst financial constraints, stressing feasible nutrition throughout. 4. Lower Back Pain Therapy continuation and its outcomes anticipate work readiness; imaging may be revisited to evaluate persistent or underlying causative factors.Continue following with [facility] 5. Colon cancer screening Colonoscopy scheduled 12/[address] Umana Discussion Notes During this consultation, we thoroughly addressed the patient's primary concerns about non-compliance with CPAP therapy due to financial constraints. The potential risks of untreated Obstructive Sleep Apnea were discussed, including cardiovascular consequences. I emphasized the importance of using cost-effective resources for CPAP maintenance and scheduled a sleep study to reassess his status. We reviewed the management of his hypertension with Losartan and reiterated the importance of adherence, supported by stable blood pressure values today. His Hyperlipidemia regimen with Atorvastatin remains unchanged, apart from dietary improvement strategies. Workman's Compensation for his lower back injury was deliberated upon, reaffirming his ongoing recovery through physical therapy. Lastly, we confirmed follow-up actions such as engaging our patient portal for ongoing communication and lab monitoring. Patient Instructions - Schedule and attend the sleep study as soon as you are contacted. - Continue taking Losartan daily as pres cribed; take your missed dose today when you return home. - Maintain current Atorvastatin dosage; focus on low-fat, low-sodium food options when possible. - Attend all scheduled physical therapy sessions for back pain. - Use the patient portal to monitor your appointments and test results. - Follow up with your colonoscopy appoin tment on December 01. - In case of increased back pain or diff iculty breathing, seek immediate medical attention. [facility] Medical History (Updated 10/30/24 @ 08:21 by LISSETT Lopez) HTN (hypertension) Hyperlipemia AL (obstructive sleep apnea) Obesity Surgical History History of excision of mass (12/03/22) Family History (Updated 10/30/24 @ 08:19 by RAISSA Tapia) Mother Emphysema lung Anemia Thyroid disease Father Diabetes High cholesterol Social History Housing: House Alcohol intake: former Year quit: 2019 Patient Tobacco Use Status: Never used Tobacco Substance Use Type: Marijuana service: No Current occupational status: employed Cognitive needs: No Hearing needs: No Vision needs: No Questionnaire PHQ-9 Over the last 2 weeks, how often have you been bothered by any of the following problems? 1. Little interest or pleasure in doing things: not at all 2. Feeling down, depressed, or hopeless: not at all 3. Trouble falling or staying asleep, or sleeping too much: not at all 4. Feeling tired or having little energy: not at all 5. Poor appetite or overeating: not at all 6. Feeling bad about yourself - or that you are a failure or have let yourself or your family down: not at all 7. Trouble concentrating on things, such as reading the newspaper or watching television: not at all 8. Moving or speaking so slowly that other people could have noticed. Or the opposite - being so fidgety or restless that you have been moving around a lot more than usual: not at all 9. Thoughts that you would be better off or of hurting yourself in some way: not at all Total score: 0 Source: Developed by Drs. Tad Reid, Monica Guerrier, Nain Noguera and colleagues, with an educational deepak from [employer]. Thrive Questionnaire Date Thrive assessed: 10/30/24 I am a: Patient What is your living situation today?: I have a steady place to live Within the past 12 months, did the food you bought not last and you didn't have the money to get more?: Never true Within the past 12 months, did you worry whether your food would run out before you got money to buy more?: Never true Do you have trouble paying for medicines?: No Do you have trouble getting transportation to medical appointments?: No Do you have trouble paying your heating and electricity bill?: No Do you have trouble taking care of your child, family member or friend?: No Do you have trouble with day-to-day activities such as bathing, preparing meals, shopping, managing finances, etc.?: No Are you currently unemployed and looking for a job?: No Are you interested in more education?: No Please select the resources that you would like help with: None THRIVE Score: 0 AUDIT C Alcohol Use Questionnaire (AUDIT-C) 1. How often do you have a drink containing alcohol?: Never Total Score: 0 KIMI-7 AMB Questionnaire KIMI-7 Date KIMI - 7 assessed: 10/30/24 Feeling nervous, anxious, or on edge: 0 = Not at all Not being able to stop or control worryin = Not at all Worrying too much about different things: 0 = Not at all Trouble relaxin = Not at all Being so restless that it is hard to sit still: 0 = Not at all Becoming easily annoyed or irritable: 0 = Not at all Feeling afraid as if something awful might happen: 0 = Not at all Total KIMI-7 score (0-4 normal; 5-9 mild; 10-14 moderate; 15-21 severe): 0 Source: Developed by Drs. Tad Reid, Monica Guerrier, Nain Noguera and colleagues, with an educational deepak from [employer]. Physical exam (Primary Care) Vital Signs: Last Vital Signs Temp 98.0 F 10/30/24 08:19 Pulse 76 10/30/24 08:19 Resp 16 10/30/24 08:19 BP 118/84 10/30/24 08:19 Pulse Ox 98 10/30/24 08:19 BMI result Body Mass Index 32.7 Tobacco/Smoking Status: Tobacco use Status Tobacco use date assessed 10/30/24 10/30/24 08:20 Patient Tobacco Use Status Never used Tobacco 10/30/24 08:20 PHQ-9: PHQ-9 Score PHQ-9: Total score 0 10/30/24 08:22 Thrive Assessment: Date of Thrive Assessment Date Thrive assessed 10/30/24 10/30/24 08:20 Coding Level of Care Code New Pt Level 4 (75967) Complex EM visit Add On G2211 Diagnoses AL (obstructive sleep apnea) G47.33 HTN (hypertension) I10 HLD (hyperlipidemia) E78.5 Obesity E66.9 Assessment & Plan Assessment & Plan (1) AL (obstructive sleep apnea): Comment: MODERATELY SEVERE OBSTRUCTIVE SLEEP APNEA, WILL BE TREATED WITH CPAP DEVICE. FULLFACE MASK OF MEDIUM SIZE AND PRESSURE OF 13 CM HAS BEEN ORDERED. PATIENT IS EDUCATED AND ALSO MOTIVATED TO USE THE CPAP REGULARLY. Code(s): G47.33 - Obstructive sleep apnea (adult) (pediatric) Category: Medical Plan: Sleep study scheduled (2) HTN (hypertension): Code(s): I10 - Essential (primary) hypertension Plan: Stable. Continue losartan. BMP ordered (3) HLD (hyperlipidemia): Code(s): E78.5 - Hyperlipidemia, unspecified Plan: Last lipids at goal. Continue aorvastatin. Low fast diet (4) Obesity: Comment: HE IS ONLY MODERATELY OBESE, HE DOES HAVE INCENTIVE TO LOSE WEIGHT. DIET AND ROLE OF EXERCISES DISCUSSED WITH HIM. Code(s): E66.9 - Obesity, unspecified Category: Medical Plan: Encouraged to continue weight loss efforts. Health diet and exercise discussed. Plan Follow up in 6 months. Labs to be completed today. Sleep study ordered. Colonoscopy as scheduled. Orders: Orders Basic Metabolic Panel Today E78.5 - Hyperlipidemia, unspecified, I10 - Essential (primary) hypertension Hemoglobin A1c Today Z12.11 - Encounter for screening for malignant neoplasm of colon, Z13.1 - Encounter for screening for diabetes mellitus RT home sleep study Today G47.33 - Obstructive sleep apnea (adult) (pediatric)
[2024-10-30 08:19] VITALS: BP 118/84; PULSE 76; RESP 16; TEMP 36.7; O2SAT 98; BMI 32.7
== END 2024-10-30 08:46 | disposition home or self-care (01) ==
LOC: HO.HMCHD 08:03
PROVIDERS: PCP Physician Assistant; Visit Provider Physician Assistant
DX: G47.33 Obstructive sleep apnea (adult) (pediatric) (principal); I10 Essential (primary) hypertension; E78.5 Hyperlipidemia, unspecified; E66.9 Obesity, unspecified

== ENCOUNTER 2024-12-26 14:09 | Outpatient (AMB) | payer OTHER, SELFPAY ==
--- OUTSIDE RECORDS SUMMARY | 2024-12-01 09:40 | XMS_ITS ---
Author Organization [facility] Address [address] [place] [address] Care Team Providers Care Patient Access Associate Name Role Phone RAMIREZ NINO Primary Care Provider Tad Killian [phone] REASON FOR VISIT COLON SCREENING Encounters Encounter Location Date Provider Diagnosis [facility] [address] [facility] [address] [place] [address] 12/01/2024 Tad Umana Plan Of Treatment Next Appt Details Provider Name:Tad Umana , 03/07/2025 02:20:00 PM, [address] [facility], [address], [place], [address], Progress Notes * YOCASTA MORALESDOB:[birth year] (49 yo M)Acc No.[id number]:12/01/2024 Progress Notes Patient: YOCASTA YOUNG Provider: Rahul Umana MD :1975 A ge:49 Y S ex:Male Date:12/01/2024 Address:[address] [place], [place] [phone] Pcp:RAMIREZ NINO Subjective: * Chief Complaints: * 1 . COLON SCREENING. * Medical History: Objective: * Vitals: Assessment: Plan: * Treatment: * * The named appointment provid er may or may not be the originator of this progress note, and it is not deemed complete until electronically signed by the appointment provider. Sign off status: Pending * Provider: Rahul Umana MD Date: 12/01/2024 Generated for Vinayaki ng/Falakiag/eTransmitting on: 12/26/2024 03:00 PM EDT
--- NOTE | 2024-12-26 14:10 | A.OFFPC_ITS ---
Vital Signs 12/26/24 14:13 12/26/24 14:14 12/26/24 14:17 Height 5 ft 10 in Weight 97.069 kg BMI 30.7 BP 122/76 Blood Pressure Location Lt brachial Position Sitting Respiration 14 Pulse 77 Pulse Source Pulse Oximeter Temp 97.5 F Temp Source Temporal Artery Scan Pulse Oximetry (%) 98 Oxygen Delivery Method Room Air Intake Visit Reasons: routine Vehicle Controls Engineer Required: No Accompanied by: Self / Same As Patient Allergies No Known Allergies (No Known Allergies*) Allergy (Verified 12/26/24 14:10) Medication List - Last Reconciled 12/26/24 by LISSETT Lopez atorvastatin 10 mg PO DAILY losartan 50 mg PO DAILY Tobacco use date assessed: 10/30/24 Dental Screening Dental Screen Date: 10/30/24 HPI HPI Comments History of Present Illness Details The patient is a 49-year-old male presenting with requests related to a routine follow-up and scheduling a 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 He has sleep study scheduled for next week on 01/03. 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 He is requesting a note for extension on his license given the sleep study is ordered and will likely take 2 weeks for results. He is also reporting that he does experience sharp left-sided chest pain that is nonradiating intermittently. Reports sometimes it will last all day. No associated symptoms including vision changes, headache, shortness of breath, palpitations, near-syncope. He does have family history of cardiovascular disease. He feels that it is possibly related to stress but is not certain of the correlation. It is nonexertional. ROS: General: No fevers, malaise, unintentional weight loss HEENT: No blurred vision, diplopia. No sore throat, nasal congestion, rhinorrhea, sinus pain, ear pain Cardiovascular: See HPI Respiratory: No shortness of breath, wheezing, cough GI: No abdominal pain, nausea, vomiting, diarrhea, constipation, melena, hematochezia : No dysuria, hematuria, increased urinary frequency, decreased urinary output MSK: No myalgia, back pain Neuro: No headaches, weakness, paresthesias Skin: No rashes or lesions EXAM: Constitutional - Awake and Alert, No apparent distress Eyes - PERRL Cardiovascular - S1S2, RRR, No edema Respiratory - Normal lung expansion, Normal respiratory effort, No respiratory distress, CTA bilaterally Chest - no reproducible chest pain Extremities - no calf tenderness bilaterally, no swelling Skin - Warm/Dry Neurological - Alert & oriented x3 Psychological - Appropriate [facility] Medical History (Updated 12/26/24 @ 14:40 by LISSETT Lopez) Atypical chest pain HTN (hypertension) Hyperlipemia AL (obstructive sleep apnea) Obesity Surgical History History of excision of mass (12/03/22) Family History (Updated 10/30/24 @ 08:19 by RAISSA Tapia) Mother Emphysema lung Anemia Thyroid disease Father Diabetes High cholesterol Social History Housing: House Alcohol intake: former Year quit: 2019 Patient Tobacco Use Status: Never used Tobacco Substance Use Type: Marijuana service: No Current occupational status: employed Cognitive needs: No Hearing needs: No Vision needs: No Questionnaire Thrive Questionnaire Date Thrive assessed: 10/30/24 KIMI-7 AMB Questionnaire KIMI-7 Date KIMI - 7 assessed: 10/30/24 Source: Developed by Drs. Tad Reid, Monica Guerrier, Nain Noguera and colleagues, with an educational deepak from [facility]. Physical exam (Primary Care) Vital Signs: Last Vital Signs Temp 97.5 F 12/26/24 14:14 Pulse 77 12/26/24 14:14 Resp 14 12/26/24 14:17 BP 122/76 12/26/24 14:14 Pulse Ox 98 12/26/24 14:14 Oxygen Delivery Method Room Air 12/26/24 14:14 BMI result Body Mass Index 30.7 Tobacco/Smoking Status: Tobacco use Status Tobacco use date assessed 10/30/24 12/26/24 14:17 Patient Tobacco Use Status Never used Tobacco 12/26/24 14:17 Thrive Assessment: Date of Thrive Assessment Date Thrive assessed 10/30/24 12/26/24 14:17 Office Procedures EKG 76288-Zwgpyzhyxurffwltt, Complete (NSR, rate 66. inferior repolarization consider ischemia) Coding Level of Care Code Est Pt Level 4 (17701) Complex EM visit Add On G2211 Diagnoses AL (obstructive sleep apnea) G47.33 HTN (hypertension) I10 Hyperlipemia E78.5 Atypical chest pain R07.89 CPT Codes EKG - CPT: 68960-Gahskosvigfiqblpw, Complete ([id number]) Assessment & Plan Assessment & Plan (1) AL (obstructive sleep apnea): Comment: MODERATELY SEVERE OBSTRUCTIVE SLEEP APNEA, WILL BE TREATED WITH CPAP DEVICE. FULLFACE MASK OF MEDIUM SIZE AND PRESSURE OF 13 CM HAS BEEN ORDERED. PATIENT IS EDUCATED AND ALSO MOTIVATED TO USE THE CPAP REGULARLY. Code(s): G47.33 - Obstructive sleep apnea (adult) (pediatric) Category: Medical Plan: Complete sleep study as scheduled on 01/03. Work note for extension on DOT license provided (2) HTN (hypertension): Code(s): I10 - Essential (primary) hypertension Category: Medical Plan: Controlled. Continue losartan. Renal function electrolyte levels normal. (3) Hyperlipemia: Code(s): E78.5 - Hyperlipidemia, unspecified Category: Medical Plan: Controlled. LDL 93. Continue atorvastatin 10 mg daily (4) Atypical chest pain: Code(s): R07.89 - Other chest pain Category: Medical Plan: EKG in the office reassuring-no acute ST-elevation or depression. There is pos sible inferior repolarization which may indicate ischemia. Referred for exercise stress test. No further intervention at this time as chest pain does appear to be atypical in nature based on clinical history however does have history of cardiovascular disease in his family. Plan Follow-up in the office as scheduled Orders: Orders CA echo stress exercise Today R07.9 - Chest pain, unspecified, Z82.49 - Family history of ischemic heart disease and other diseases of the circulatory system AMB EKG-In Office Today R07.89 - Other chest pain
[2024-12-26 14:13] VITALS: BMI 30.7
[2024-12-26 14:14] VITALS: BP 122/76; PULSE 77; TEMP 36.4; O2SAT 98
[2024-12-26 14:17] VITALS: RESP 14
--- OUTSIDE RECORDS SUMMARY | 2024-12-26 15:01 | XMS_ITS ---
Author Name [facility] Organization Unknown Care Team Organization Name Specialty Phone Email Start Date End [facility]
== END 2024-12-26 14:56 | disposition home or self-care (01) ==
LOC: HO.HMCHD 14:09
PROVIDERS: PCP Physician Assistant; Visit Provider Physician Assistant
DX: G47.33 Obstructive sleep apnea (adult) (pediatric) (principal); I10 Essential (primary) hypertension; E78.5 Hyperlipidemia, unspecified; R07.89 Other chest pain

== ENCOUNTER → 2024-12-26 14:09 | Outpatient (BNVA) | payer OTHER, SELFPAY | PROVIDERS: PCP Physician Assistant; Visit Provider Physician Assistant | DX: I10 Essential (primary) hypertension (principal); R07.89 Other chest pain | CPT/HCPCS: 93005 ==

== ENCOUNTER → 2025-01-03 15:12 | Outpatient (REF) | payer OTHER, SELFPAY ==
--- OUTSIDE RECORDS SUMMARY | 2024-12-01 09:40 | XMS_ITS ---
Author Organization [facility] Address [address] [place] [address] Care Team Providers Care Supervisor Orchard Name Role Phone RAMIREZ NINO Primary Care Provider Tad Killian [phone] REASON FOR VISIT COLON SCREENING Encounters Encounter Location Date Provider Diagnosis [facility] [address] [facility] [address] [place] [phone] 12/01/2024 Tad Umana Plan Of Treatment Next Appt Details Provider Name:Tad Umana , 03/07/2025 02:20:00 PM, [address] [facility], [address], [place], [address], Progress Notes * YOCASTA MORALESDOB:[birth year] (49 yo M)Acc No.[id number]:12/01/2024 Progress Notes Patient: YOCASTA YOUNG Provider: Rahul Umana MD :1975 A ge:49 Y S ex:Male Date:12/01/2024 Address:[address] [place], [place] [id number] Pcp:RAMIREZ NINO Subjective: * Chief Complaints: * [...] Umana MD Date: 0 12/01/2024 Generated for Vinayaki ng/Falakiag/eTransmitting on: 01/03/2025 03:33 PM EDT
== END ==
LOC: HO.SL 15:12
PROVIDERS: PCP Physician Assistant; Visit Provider Physician Assistant
DX: G47.33 Obstructive sleep apnea (adult) (pediatric) (principal)
CPT/HCPCS: 95806

== ENCOUNTER → 2025-01-03 15:22 | Outpatient (BNV) | payer OTHER, SELFPAY | PROVIDERS: PCP Physician Assistant; Visit Provider Internal Medicine | DX: G47.33 Obstructive sleep apnea (adult) (pediatric) (principal) | CPT/HCPCS: 95806 ==

== ENCOUNTER 2025-02-21 10:02 | Outpatient (AMB) | payer OTHER, SELFPAY ==
--- OUTSIDE RECORDS SUMMARY | 2024-12-01 09:40 | XMS_ITS ---
Author Organization [facility] Address [address] [place] [address] Care Team Providers Care Spring Salvage Worker Name Role Phone RAMIREZ NINO Primary Care Provider Tad Killian [phone] REASON FOR VISIT COLON SCREENING Encounters Encounter Location Date Provider Diagnosis [facility] [address] [facility] [address] [place] [address] 12/01/2024 Tad Umana Plan Of Treatment Next Appt Details Provider Name:Tad Umana , 03/07/2025 02:20:00 PM, [address] [facility], [address], [place], [address], Progress Notes * YOCASTA MORALESDOB:[birth year] (49 yo M)Acc No.[id number]:12/01/2024 Progress Notes Patient: YOCASTA YOUNG Provider: Rahul Umana MD :1975 A ge:49 Y S ex:Male Date:12/01/2024 Address:[address] [place], [place] [phone] Pcp:RAMIREZ NINO Subjective: * Chief Complaints: * [...] 0 12/01/2024 Generated for Vinayaki reyna/Falakiag/eTransmitting on: 02/21/2025 11:29 AM EDT
--- NOTE | 2025-02-21 10:15 | MHC.PC.OV ---
Vital Signs 02/21/25 10:23 02/21/25 10:52 Height 5 ft 10 in Weight 92.986 kg BMI 29.4 BP 118/90 H 116/85 Pulse 80 Pulse Source Pulse Oximeter Temp 98.3 F Temp Source Temporal Artery Scan Pulse Oximetry (%) 97 Oxygen Delivery Method Room Air Intake Visit Reasons: Review BP Manager Of Purchasing Required: No Accompanied by: Self / Same As Patient Allergies No Known Allergies (No Known Allergies*) Allergy (Verified 02/21/25 10:18) Medication List - Last Reconciled 02/21/25 by LISSETT Lopez atorvastatin 10 mg PO DAILY losartan 50 mg PO DAILY Tobacco use date assessed: 10/30/24 Dental Screening Dental Screen Date: 10/30/24 HPI HPI Comments History of Present Illness Details 49-year-old male with history of hypertension and hyperlipidemia presents to the office today for follow-up. He underwent sleep study on 01/03 with AL improved to mild. Advised by provider he no longer needs it he uses CPAP. 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 He was advised to follow-up in the office. He has purchased a blood pressure cuff for use at home with blood pressures that are still mildly elevated. However, he is taking this with his legs dangling as well as left arm. He has been compliant with losartan 50 mg daily. He has also made significant changes to his diet limiting highly processed foods, sugars, and simple carbohydrates. Blood pressures in the office within the normal range 122/82, 116/65. He did check his blood pressure in the office with his own cuff with reading of 132/82. ROS: General: No fevers, malaise, unintentional weight loss HEENT: No blurred vision, diplopia. No sore throat, nasal congestion, rhinorrhea, sinus pain, ear pain Cardiovascular: No chest pain, palpitations, edema Respiratory: No shortness of breath, wheezing, cough GI: No abdominal pain, nausea, vomiting, diarrhea, constipation, melena, hematochezia : No dysuria, hematuria, increased urinary frequency, decreased urinary output MSK: No myalgia, back pain Neuro: No headaches, weakness, paresthesias Skin: No rashes or lesions EXAM: Constitutional - Awake and Alert, No apparent distress Eyes - PERRL Cardiovascular - S1S2, RRR, No edema Respiratory - Normal lung expansion, Normal respiratory effort, No respiratory distress, CTA bilaterally Chest - no reproducible chest pain Extremities - no calf tenderness bilaterally, no swelling Skin - Warm/Dry Neurological - Alert & oriented x3 Psychological - Appropriate affect [facility] Medical History (Updated 02/21/25 @ 10:53 by LISSETT Lopez) Atypical chest pain HTN (hypertension) Hyperlipemia AL (obstructive sleep apnea) Obesity Surgical History History of excision of mass (12/03/22) Family History (Updated 10/30/24 @ 08:19 by RAISSA Tapia) Mother Emphysema lung Anemia Thyroid disease Father Diabetes High cholesterol Social History Housing: House Alcohol intake: former Year quit: 2019 Patient Tobacco Use Status: Never used Tobacco Substance Use Type: Marijuana service: No Current occupational status: employed Cognitive needs: No Hearing needs: No Vision needs: No Questionnaire Thrive Questionnaire Date Thrive assessed: 10/30/24 KIMI-7 AMB Questionnaire KIMI-7 Date KIMI - 7 assessed: 10/30/24 Source: Developed by Drs. Tad Reid, Monica Guerrier, Nain Noguera and colleagues, with an educational deepak from [employer]. Physical exam (Primary Care) Vital Signs: Last Vital Signs Temp 98.3 F 02/21/25 10:23 Pulse 80 02/21/25 10:23 BP 118/90 H 02/21/25 10:23 Pulse Ox 97 02/21/25 10:23 Oxygen Delivery Method Room Air 02/21/25 10:23 BMI result Body Mass Index 29.4 Tobacco/Smoking Status: Tobacco use Status Tobacco use date assessed 10/30/24 02/21/25 10:15 Patient Tobacco Use Status Never used Tobacco 02/21/25 10:15 Thrive Assessment: Date of Thrive Assessment Date Thrive assessed 10/30/24 02/21/25 10:15 Coding Level of Care Code Est Pt Level 3 (11730) Diagnoses AL (obstructive sleep apnea) G47.33 HTN (hypertension) I10 Hyperlipemia E78.5 Assessment & Plan Assessment & Plan (1) AL (obstructive sleep apnea): Comment: Repeat 01/03/25, mild al. no cpap Code(s): G47.33 - Obstructive sleep apnea (adult) (pediatric) Category: Medical Plan: Reviewed sleep study. No longer requiring use of CPAP. Continue with healthy lifestyle changes (2) HTN (hypertension): Code(s): I10 - Essential (primary) hypertension Category: Medical Plan: Controlled with multiple rechecks. He can continue checking his blood pressure with his own cuff at home. Educated on appropriate positioning for blood pressure checks. (3) Hyperlipemia: Code(s): E78.5 - Hyperlipidemia, unspecified Category: Medical Plan: Controlled. LDL 93. Continue atorvastatin 10 mg daily Plan Follow-up in the office as scheduled Medications: Changed From losartan 75 mg (1.5 x 50 mg) PO DAILY 135 tabs 0RF To losartan 50 mg PO DAILY 90 tabs 1RF
[2025-02-21 10:23] VITALS: BP 118/90; PULSE 80; TEMP 36.8; O2SAT 97; BMI 29.4
[2025-02-21 10:52] VITALS: BP 116/85
--- OUTSIDE RECORDS SUMMARY | 2025-02-21 11:32 | XMS_ITS | Patient Health Record ---
Author Organization [facility] Address [address] [place] [address] Care Team Providers Care Electrical Equipment Assembler Name Role Phone RAMIREZ NINO Primary Care Provider Tad Killian Unavailable [phone] Reason For Referral No Information Plan Of Treatment Next Appt Details Provider Name:Tad Umana , 03/07/2025 02:20:00 PM, [address], [address], [place], [address], Insurance Providers Payer Name Payer Address Payer Phone Subscriber Number Group Number Insured Name Patient Relationship to Insured Coverage Start Date Coverage End Date [facility] [address] [place] [phone] [id number] YOCASTA MORALES Self - patient is the insured
== END 2025-02-21 10:52 | disposition home or self-care (01) ==
LOC: HO.HMCHD 10:03
PROVIDERS: PCP Physician Assistant; Visit Provider Physician Assistant
DX: G47.33 Obstructive sleep apnea (adult) (pediatric) (principal); I10 Essential (primary) hypertension; E78.5 Hyperlipidemia, unspecified

== ENCOUNTER 2025-04-10 17:50 | Emergency (ER) | payer OTHER, SELFPAY ==
--- OUTSIDE RECORDS SUMMARY | 2024-12-01 09:40 | XMS_ITS ---
Author Organization [facility] Address [address] [place] [address] Care Team Providers Care Linseed Oil Temperer Name Role Phone RAMIREZ NINO Primary Care Provider Tad Killian [phone] REASON FOR VISIT COLON SCREENING Encounters Encounter Location Date Provider Diagnosis [facility] [address] [facility] [address] [place] [phone] 12/01/2024 Tad Umana Plan Of Treatment Next Appt Details Provider Name:Tad Umana , 07/04/2025 04:00:00 PM, [address] [facility], [address], [place], [address], Progress Notes * YOCASTA MORALESDOB:[birth year] (49 yo M)Acc No.[id number]:12/01/2024 Progress Notes Patient: YOCASTA YOUNG Provider: Rahul Umana MD :1975 A ge:49 Y S ex:Male Date:12/01/2024 Address:[address] [place], [place] [id number] Pcp:RAMIREZ NINO Subjective: * Chief Complaints: * [...] 0 12/01/2024 Generated for Lionel orellana/Slim/eTransmitting on: 01:18 AM EDT
--- OUTSIDE RECORDS SUMMARY | 2025-03-07 10:20 | XMS_ITS ---
Author Organization [facility] Address [address] [place] [address] Care Team Providers Care Press Operator Meat Name Role Phone RAMIREZ NINO Primary Care Provider Tad Killian [facility] [phone] REASON FOR VISIT Patient presents today for a COLON SCREENING Encounters Encounter Location Date Provider Diagnosis [facility] [address] [place] [address] 03/07/2025 Tad Umana Plan Of Treatment Next Appt Details Provider Name:Tad Umana , 07/04/2025 04:00:00 PM, [address], [address], [place], [address], Progress Notes * YOCASTA MORALESDOB:[birth year] (49 yo M)Acc No.[id number]:03/07/2025 Progress Notes Patient: YOCASTA YOUNG Provider: Rahul Umana MD :1975 A ge:49 Y S ex:Male Date:03/07/2025 Address:[address] [place] [phone] Pcp:RAMIREZ NINO Subjective: * Chief Complaints: * [...] 0 03/07/2025 Generated for Lionel orellana/Slim/eTransmitting on: 1 01:19 AM EDT
--- OUTSIDE RECORDS SUMMARY | 2025-04-09 18:41 | XMS_ITS | Encounter Summary ---
Author Organization [facility] Address [address] [place] [address] Care Team Providers Care Maintenance Coordinator Name Role Phone Unknown, Pcp Primary Care Provider Unavailabl e Reason for Visit * Reason Comments Palpitations Encounter Details Date Type Department Care Team (Late st Contact Info) Description 04/09/2025 6:41 PM EDT - 04/09/2025 7:33 PM EDT Emergency [facility] [address] [place], [place] [phone] Ajay Haney MD [address] [place] [address] Presley Roche MD [address] [place] [phone] Palpitations (Primary Dx) Discharge Disposition: Home or [...] METABOLIC PANEL STAT 04/09/2025 1:56 PM EDT CBC WITH DIFF STAT 04/09/2025 1:56 PM [...] 2 hr DELTA) (04/09/2025 4:49 PM EDT) [facility] hs-TNI 2 hr 4 3 - 35 ng/L 04/09/2025 5:59 PM EDT [facility] Blood 04/09/2025 4:49 PM EDT 04/09/2025 5:20 PM EDT us Ajay Haney MD LAB BLOOD ORDERABLES Final R esult Performing Organization Address City/[facility] Co de Phone Number [facility] [address] [place] [phone] [place] [address] [place] [address] * TSH Reflex (04/09/2025 1:56 PM EDT) [facility] TSH, High Sensitivity 0.706 0.330 - 4.120 uIU/ML 04/09/2025 6:30 PM EDT [facility] Blood 04/09/2025 1:56 PM EDT 04/09/2025 5:39 PM EDT us Ajay Haney MD LAB BLOOD ORDERABLES Final R esult Performing Organization Address City/[facility]/ZIP Co de Phone Number [facility] [address] [place] [address] * hs-TNI baseline (04/09/2025 1:56 PM EDT) [facility] hs-TNI baseline 4 3 - 35 ng/L 04/09/2025 2:55 PM EDT [facility] Blood 04/09/2025 1:56 PM EDT 04/09/2025 2:06 PM EDT us Ajay Haney MD LAB BLOOD ORDERABLES Final R esult [facility] [address] [place] [address] [facility] [address] [place] [address] * (ABNORMAL) CBC WITH DIFF (04/09/2025 1:56 PM EDT) WBC 6.1 4.2 - 10.0 [id number]/L 04/09/2025 2:17 PM [facility] RBC 4.84 4.50 - 5.60 [id number]/ L 04/09/2025 2:17 PM [facility] Hemoglobin 15.2 13.4 - 16.0 g/dL 04/09/2025 2:17 PM [facility] Hematocrit 43.0 41.2 - 51.0 % 04/09/2025 2:17 PM [facility] MCV 88.8 85.2 - 100.2 fL 04/09/2025 2:17 PM [facility] MCH 31.4 27.0 - 32.4 pg 04/09/2025 2:17 PM [facility] MCHC 35.3(H) 29.5 - 34.2 g/dL 04/09/2025 2:17 PM [facility] RDW 12.3 11.8 - 14.4 % 04/09/2025 2:17 PM [facility] Platelets 285 168 - 382 [id number]/L 04/09/2025 2:17 PM [facility] MPV 9.0(L) 9.6 - 12.5 fL 04/09/2025 2:17 PM [facility] NRBC % 0.0 -1.0 - 0.0 % 04/09/2025 2:17 PM [facility] NRBC (absolute) 0.0 [id number]/L 2:17 PM [facility] Immature Granulocytes % 0.2 % 04/09/2025 2:17 PM [facility] Immature Granulocytes (absolute) 0.0 0.0 - 0.1 n23xzc2/L 04/09/2025 2:17 PM [facility] Seg Neutrophil % 58.5 % 04/09/20 2:17 PM EDT [facility] Seg Neutrophil (absolute) 3.6 1.9 - 6.7 [id number]/L 04/09/2025 2:17 PM EDT [facility] Lymphocyte % 31.2 % 04/09/2025 2:17 PM EDT [facility] Lymphocyte (absolute) 1.9 1.0 - 3.3 s72lnh6/L 04/09/2025 2:17 PM EDT [facility] Monocyte % 7.4 % 04/09/2025 2:17 PM EDT [facility] Monocyte (absolute) 0.5 0.3 - 0.9 e04pes8/L 04/09/2025 2:17 PM EDT [facility] Eosinophil % 2.0 % 04/09/2025 2:17 PM EDT [facility] Eosinophil (absolute) 0.1 0.0 - 0.4 i73lrr0/L 04/09/2025 2:17 PM EDT [facility] Basophil % 0.7 % 04/09/2025 2:17 PM EDT [facility] Basophil (absolute) 0.0 0.0 - 0.1 [id number]/L 04/09/2025 2:17 PM EDT [facility] 04/09/2025 1:56 PM EDT 04/09/2025 2:06 PM EDT us Ajay Haney MD LAB BLOOD ORDERABLES Final R esult [facility] [address] [place] [address] [facility] [address] [place] [address] * (ABNORMAL) Basic Metabolic Panel (04/09/2025 1:56 PM EDT) Glucose 87 67 - 99 MG/DL 04/09/2025 2:55 PM EDT [facility] BUN 17 6 - 24 MG/DL 04/09/2025 2:55 PM EDT [facility] Creat Level 0.90 0.64 - 1.27 MG/DL 04/09/2025 2:55 PM EDT [facility] eGFR 106 >90 mL/min/1.7 3m exp2 04/09/2025 2:55 PM EDT [facility] Comment:Calculated using the CKD-epi 2020 race-free equation. BUN Creatinine Ratio 19 04/09/2025 2:55 PM EDT [facility] Sodium 140 135 - 145 MEQ/L 04/09/2025 2:55 PM EDT [facility] Potassium 4.2 3.6 - 5.1 MEQ/L 04/09/2025 2:55 PM EDT [facility] Chloride 104 98 - 110 MEQ/L 04/09/2025 2:55 PM EDT [facility] CO2 30(H) 20 - 29 MEQ/L 04/09/2025 2:55 PM EDT [facility] Anion Gap 6 3 - 13 04/09/2025 2:55 PM EDT [facility] Calcium 9.5 8.4 - 10.2 MG/DL 04/09/2025 2:55 PM EDT [facility] Blood 04/09/2025 1:56 PM EDT 04/09/2025 2:06 PM EDT us Ajay Haney MD LAB BLOOD ORDERABLES Final R esult [facility] [address] [place] [address] [facility] [address] [place] [address] documented in this encounter Visit Diagnoses Diagnosis Palpitations- Primary documented in this encounter Care Teams Maintenance Coordinator Relationship Specialty Start Date End Date Unknown, Pcp, Unknown Address Unknown [place] [address] PCP - General Internal Medicine 04/09/25 documented as of this encounter
[2025-04-10 18:34] VITALS: BP 151/94; PULSE 75; RESP 16; TEMP 36.6; O2SAT 97; BMI 35.9
--- NOTE | 2025-04-10 18:43 | ED.GENADULT ---
HPI - General Adult General Chief complaint: Wound/Laceration Stated complaint: left hand wound/stitches? Time Seen by Provider: 04/11/25 00:28 Source: patient and family () Mode of arrival: ambulatory Limitations: no limitations History of Present Illness ED Provider: Dr. Deondre Kenyon HPI narrative: 49-year-old male with a history of hypertension obstructive sleep apnea who presents emergency department for evaluation of accidental stab wound to his 3rd webspace between his left middle and ring finger. Patient states that he was trying to remove in avocado pit. States that he stab the avocado pit, the knife slipped off the pit and he accidentally stabbed himself in the 3rd webspace. He states that he can move his fingers without any difficulty but he does feel like his left ring finger on the radial aspect is numb. He did not know in his last tetanus shot was given. Related Data Previous Rx's ?Medication ?Instructions ?Recorded atorvastatin 10 mg tablet 10 mg PO DAILY #90 tabs 01/11/25 losartan 50 mg tablet 50 mg PO DAILY #90 tabs 02/21/25 valacyclovir 1 gram tablet 1,000 mg PO TID 10 days #30 tabs 04/02/25 Allergies Allergy/AdvReac Type Severity Reaction Status Date / Time No Known Allergies (No Known Allergy Verified 04/10/25 18:35 Allergies*) Review of Systems Review of Systems: Yes all other systems are reviewed and are negative [facility] Past Medical History Medical History (Updated 04/11/25 @ 01:45 by Deondre Kenyon MD) Atypical chest pain HTN (hypertension) Hyperlipemia AL (obstructive sleep apnea) Obesity Surgical History History of excision of mass (12/03/22) Family History Family History (Updated 10/30/24 @ 08:19 by RAISSA Tapia) Mother Emphysema lung Anemia Thyroid disease Father Diabetes High cholesterol Social History Social History Housing: House Alcohol intake: former Year quit: 2019 Patient Tobacco Use Status: Never used Tobacco Substance Use Type: Marijuana service: No Current occupational status: employed Cognitive needs: No Hearing needs: No Vision needs: No Physical Exam ED Vital Signs: Vital Signs - 24 hr 04/10/25 18:34 04/11/25 01:30 04/11/25 02:14 Temperature 97.8 F 97.8 F 97.8 F Pulse Rate 75 64 64 Respiratory Rate 16 18 18 Blood Pressure 151/94 H 146/93 H 146/93 H Pulse Oximetry 97 96 96 Oxygen Delivery Method Room Air Room Air Room Air BMI result Body Mass Index 35.9 Vital signs revealed an elevated blood pressure of 151/94 otherwise was unremarkable Exam: General: Awake, alert in no distress Extremities: Patient has a 1.0 cm laceration to the left 3rd webspace between his little and ring finger. The patient has good 2 point discrimination to middle finger but diminished 2 point discrimination to the radial aspect of the ring finger. I did not see any obvious tendon or nerve like structures in the wound. Patient has good interosseous muscle strength in his able to flex and extend his fingers without any difficulty. Psych: Pleasant, cooperative Course Course Course Narrative: RME, this is a rapid medical exam performed by Nate Alas please refer to primary provider for complete H&P- 49-year-old male who accidentally cut it in between in his left 3rd and 4th fingers. He was trying to remove the avocado seed from the avocado. He has a about a 1-1/2 cm linear laceration to the web spacing. Bleeding controlled Medications Administered Discontinued Medications Generic Name Dose Route Start Last Admin Trade Name Freq PRN Reason Stop Dose Admin Diphtheria/Tetanus/Acell Pertussis 0.5 ml 04/11/25 00:33 04/11/25 01:17 Diphth,Pertus(Acell),Tet Adult 0.5 Ml Syringe IM 04/11/25 00:34 0.5 ml .ONCE ONE Administration Lidocaine HCl 5 ml 04/11/25 00:33 04/11/25 01:18 Lidocaine Hcl 1 % Mpf 5 Ml Vial INFILTRATI 04/11/25 00:34 5 ml ONCE ONE Administration Medical Decision Making Medical Decision Making [facility] Narrative: 49-year-old male with a history of hypertension obstructive sleep apnea who presents emergency department for evaluation of accidental stab wound to his 3rd webspace between his left middle and ring finger. Patient states that he was trying to remove in avocado pit. States that he stab the avocado pit, the knife slipped off the pit and he accidentally stabbed himself in the 3rd webspace. He states that he can move his fingers without any difficulty but he does feel like his left ring finger on the radial aspect is numb. He did not know in his last tetanus shot was given. Exam did reveal 1.0 cm laceration to the 3rd web space between the middle and ring finger of the left hand. The patient had normal strength with diminished 2 point discrimination and light touch to the radial aspect of the ring finger. Differential diagnosis: ?Includes but is not limited to laceration, tendon injury, nerve injury Course: 02:00 The patient's laceration was irrigated with normal saline and closed with 4.0 Prolene sutures x7 sutures. Wound was covered with bacitracin and a nonstick dressing and the 3rd and 4th fingers were wrapped with Kerlix gauze. Given the diminished sensation over the radial aspect of the 4th ring finger, patient will need to follow up with Orthopedics to determine if he has a nerve injury. I did discuss this with the patient. He was advised to take Tylenol and ibuprofen for pain. Patient was given a work note to stay out of work for at least 4 days. The patient was given printed and verbal instructions and discharged home. Differential Diagnosis Differential Diagnoses: The differential diagnosis associated with the presentation includes (See above) Admission/Observation Consideration of admission/observation: Escalation of care including admission/observation considered (Yes) Independent Historian Clinical information obtained from an independent historian. History obtained from or confirmed by: Spouse Chronic Conditions Patient?s care impacted by: Hypertension Discharge Plan Discharge Clinical Impression: Laceration of hand, left Patient Disposition: Home, Self-Care Instructions: Laceration (ED) Additional Instructions: You accidentally stabbed the webspace between your left middle and index finger. The laceration was fixed with 7 sutures, these need to be removed in 7-10 days. On the exam, prior to numbing up your finger, you had decreased sensation to the radial (thumb side) of your left ring finger. I am concerned that you may have injured a nerve therefore I want you to follow up with our orthopedic hand surgeon, Dr. Gamble. Apply bacitracin twice a day to the wound and keep it covered. No work for 4 days you can protect your left hand. Watch for signs of infection which would include redness, swelling, drainage pus, red streaks going away from the wound, increased pain. Take ibuprofen 200 mg pills, 2 pills every 6 hours as needed for pain or fever. Take Tylenol (acetaminophen) 500 mg pills, 2 pills every 6 hours as needed for pain or fever. Follow-up with your doctor in 2 days. Please return to the emergency department if your symptoms get worse or if you develop any symptoms that are concerning to you. Prescriptions: No Action atorvastatin 10 mg tablet 10 mg PO DAILY Qty: 90 3RF valacyclovir 1 gram tablet 1,000 mg PO TID 10 Days Qty: 30 4RF losartan 50 mg tablet 50 mg PO DAILY Qty: 90 1RF Referrals: Heavenly Gamble MD [Physician, Hand Surgery] Referral Note: Accidental stab wound to left 3rd webspace between middle and ring finger with decreased sensation over the radial aspect of the ring finger. Normal strength. Repaired with 7 sutures. Please evaluate for possible nerve injury. Stand Alone Forms: Work/School Release Interventions: ED Discharge Assessment Last Done: 04/11/25 02:14 Discharge Date/Time: 04/11/25 02:15 Print Language: Bulgarian
[2025-04-11] MEDS: Diphth,Pertus(ACell),Tet Adult 0.5 ML SYRINGE IM (01:17)
[2025-04-11] MEDS: Lidocaine HCl 1 % MPF 5 ML VIAL INFILTRATI (01:18)
--- OUTSIDE RECORDS SUMMARY | 2025-04-11 01:19 | XMS_ITS | Patient Health Record ---
Author Organization [facility] Address [address] [place] [address] Care Team Providers Care Commodity Specialist Name Role Phone RAMIREZ NINO Primary Care Provider Tad Killian Unavailable [phone] Reason For Referral No Information Plan Of Treatment Next Appt Details Provider Name:Tad Umana , 07/04/2025 04:00:00 PM, [address], [address], [place], [address], Insurance Providers Payer Name Payer Address Payer Phone Subscriber Number Group Number Insured Name Patient Relationship to Insured Coverage Start Date Coverage End Date [facility] [address] [place] [address] [id number] YOCASTA MORALES Self - patient is the insured
--- OUTSIDE RECORDS SUMMARY | 2025-04-11 01:19 | XMS_ITS | Clinical Summary ---
Author Organization [facility] Address [address] [place] [address] Care Team Providers Care Instrument Fitter Name Role Phone Unknown, Pcp Primary Care Provider Unavailabl e Allergies No known active allergies Encounters Date Type Department Care Team Description 04/09/2025 6:41 PM EDT - 04/09/2025 7:33 PM EDT Emergency [facility] [address] [place] [phone] Ajay Haney MD Patel, Kunal G, MD Palpitations (Primary Dx) Discharge Disposition: Home or Self Care from Last 3 Months Social History Tobacco Use Types Packs/Day Years Used Date Smoking Tobacco: Never Assessed Sex and Gender Information Value Date Recorded Sex Assigned at Not on file Legal Sex Male 11:44 AM EDT Gender Identity Not on file Sexual Orientation Not on file Last Filed Vital Signs Vital Sign Reading Time Taken Comments Blood Pressure 141/97 04/09/2025 7:25 PM EDT Pulse 59 04/09/2025 7:25 PM EDT Temperature 36.6 C (97.8 F) 04/09/2025 7:25 PM EDT Respiratory Rate 18 04/09/2025 7:25 PM EDT Oxygen Saturation 99% 04/09/2025 7:25 PM EDT Inhaled Oxygen Concentration - - Weight - - Height - - Body Mass Index - - Plan of Treatment Health Maintenance Due Date Last Done Comments HEPATITIS C SCREENING 1994 DTAP/TDAP/TD VACCINES (1 - Tdap) 2006 COLONOSCOPY (CRC) 2022 COLORECTAL CANCER SCREENING (CRC) 2022 CT COLONOGRAPHY (CRC) 2022 FIT-DNA (CRC) 2022 FIT/iFOBT (CRC) 2022 SIGMOIDOSCOPY (CRC) 2022 INFLUENZA VACCINE (#1) 2025 COVID-19 IMMUNIZATION (1 - 2 024-25 season) 2025 ZOSTER VACCINE (1 of 2) 08/29/2027 RSV IMMUNIZATION (1 - 1-dose 75+ series) 2052 IPV VACCINES Aged Out No longer eligi ble based on patient's age to complete this topic MENINGOCOCCAL B VACCINE Aged Out No l onger eligible based on patient's age to complete this topic PNEUMOCOCCAL VACCINE Aged Out No long er eligible based on patient's age to complete this topic Procedures Procedure Name Priority Date/Time Associated Diagnosis Comments X-RAY CHEST PA AND LATERAL STAT 04/09/2025 5:01 PM EDT HS-TNI (2 HR WITH 2 HR DELTA) STAT 04/09/2025 4:49 PM EDT TSH REFLEX STAT 04/09/2025 1:56 PM EDT HS-TNI BASELINE STAT 04/09/2025 1:56 PM EDT CBC WITH DIFF STAT 04/09/2025 1:56 PM EDT BASIC METABOLIC PANEL STAT 04/09/2025 1:56 PM EDT from Last 3 Months Results * XR: Chest PA and Lateral [...] 2 hr DELTA) (04/09/2025 4:49 PM EDT) hs-TNI 2 hr 4 3 - 35 ng/L 04/09/2025 5:59 PM EDT [facility] Blood 04/09/2025 4:49 PM EDT 04/09/2025 5:20 PM EDT us Ajay Haney MD LAB BLOOD ORDERABLES Final R esult [facility] [address] [place] [id number] [place] [address] [place] [id number] * hs-TNI baseline (04/09/2025 1:56 PM EDT) hs-TNI baseline 4 3 - 35 ng/L 04/09/2025 2:55 PM EDT [facility] Blood 04/09/2025 1:56 PM EDT 04/09/2025 2:06 PM EDT Ajay Haney MD LAB BLOOD ORDERABLES Final R esult [facility] [address] [place] [address] [facility] [address] [place] [id number] * (ABNORMAL) Basic Metabolic Panel (04/09/2025 1:56 PM EDT) Pathologist [facility] Glucose 87 67 - 99 MG/DL 04/09/2025 2:55 PM EDT [facility] BUN 17 6 - 24 MG/DL 04/09/2025 2:55 PM [facility] Creat Level 0.90 0.64 - 1.27 MG/DL 04/09/2025 2:55 PM [facility] eGFR 106 >90 mL/min/1.7 3m exp2 04/09/2025 2:55 PM [facility] Comment:Calculated using the CKD-epi 2020 race-free equation. BUN Creatinine Ratio 19 04/09/2025 2:55 PM [facility] Sodium 140 135 - 145 MEQ/L 04/09/2025 2:55 PM [facility] Potassium 4.2 3.6 - 5.1 MEQ/L 04/09/2025 2:55 PM [facility] Chloride 104 98 - 110 MEQ/L 04/09/2025 2:55 PM [facility] CO2 30(H) 20 - 29 MEQ/L 04/09/2025 2:55 PM [facility] Anion Gap 6 3 - 13 04/09/2025 2:55 PM [facility] Calcium 9.5 8.4 - 10.2 MG/DL 04/09/2025 2:55 PM EDT [facility] Blood 04/09/2025 1:56 PM EDT 04/09/2025 2:06 PM EDT us Ajay Haney MD LAB BLOOD ORDERABLES Final R esult [facility] [address] [place] [address] [facility] [address] [place] [address] * (ABNORMAL) CBC WITH DIFF (04/09/2025 1:56 PM EDT) WBC 6.1 4.2 - 10.0 [id number]/L 04/09/2025 2:17 PM EDT [facility] RBC 4.84 4.50 - 5.60 o67bft18/ L 04/09/2025 2:17 PM EDT [facility] Hemoglobin 15.2 13.4 - 16.0 g/dL 04/09/2025 2:17 PM EDT [facility] Hematocrit 43.0 41.2 - 51.0 % 04/09/2025 2:17 PM [facility] MCV 88.8 85.2 - 100.2 fL 04/09/2025 2:17 PM [facility] MCH 31.4 27.0 - 32.4 pg 04/09/2025 2:17 PM [facility] MCHC 35.3(H) 29.5 - 34.2 g/dL 04/09/2025 2:17 PM EDT [facility] RDW 12.3 11.8 - 14.4 % 04/[facility]25 [facility] Platelets 285 168 - 382 v74yol5/L 04/09/2025 2:17 PM [facility] MPV 9.0(L) 9.6 - 12.5 fL 04/09/2025 2:17 PM [facility] NRBC % 0.0 -1.0 - 0.0 % 04/09/2025 2:17 [facility] NRBC (absolute) 0.0 i51ghk5/L 2:17 PM EDT [facility] Immature Granulocytes % 0.2 % 04/09/2025 2:17 PM EDT [facility] Immature Granulocytes (absolute) 0.0 0.0 - 0.1 j27sfs0/L 04/09/2025 2:17 PM EDT [facility] Seg Neutrophil % 58.5 % 04/09/20 2:17 PM EDT [facility] Seg Neutrophil (absolute) 3.6 1.9 - 6.7 y55leu2/L 04/09/2025 2:17 PM EDT [facility] Lymphocyte % 31.2 % 04/09/2025 2:17 [facility] Lymphocyte (absolute) 1.9 1.0 - 3.3 o60ckw4/L 04/09/2025 2:17 PM EDT [facility] Monocyte % 7.4 % 04/09/2025 2:17 PM EDT [facility] Monocyte (absolute) 0.5 0.3 - 0.9 r53bqi7/L 04/09/2025 2:17 PM EDT [facility] Eosinophil % 2.0 % 04/09/2025 2:17 [facility] Eosinophil (absolute) 0.1 0.0 - 0.4 o09ybk6/L 04/09/2025 2:17 PM EDT [facility] Basophil % 0.7 % 04/09/2025 2:17 PM EDT [facility] Basophil (absolute) 0.0 0.0 - 0.1 j37buh9/L 04/09/2025 2:17 PM T [facility] 04/09/2025 1:56 PM EDT 04/09/2025 2:06 PM EDT us Ajay Haney MD LAB BLOOD ORDERABLES Final R esult [facility] [address] [place], [place] [id number] [place] [address] Laboratory [address] [place] [address] * TSH Reflex (04/09/2025 1:56 PM EDT) TSH, High Sensitivity 0.706 0.330 - 4.120 uIU/ML 04/09/2025 6:30 PM EDT [facility] Blood 04/09/2025 1:56 PM EDT 04/09/2025 5:39 PM EDT us Ajay Haney MD LAB BLOOD ORDERABLES Final R esult [facility] [address] [place] [address] from Last 3 Months Insurance MEDICAID [employer] Care Teams Instrument Fitter Relationship Specialty Start Date End Date Unknown, Pcp, Unknown Address Unknown [place] [id number] PCP - General Internal Medicine 04/09/25
[2025-04-11 01:30] VITALS: BP 146/93; PULSE 64; RESP 18; TEMP 36.6; O2SAT 96
[2025-04-11 02:14] VITALS: BP 146/93; PULSE 64; RESP 18; TEMP 36.6; O2SAT 96
== END 2025-04-11 02:15 | disposition home or self-care (01) ==
PROVIDERS: Emergency Provider Emergency Medicine Emergency Medical Services; PCP Physician Assistant
DX: S61.412A Laceration without foreign body of left hand, initial encounter (principal); M79.642 Pain in left hand; W26.9XXA Contact with unspecified sharp object(s), initial encounter; Y93.9 Activity, unspecified; Y92.9 Unspecified place or not applicable; Y99.8 Other external cause status; Z23 Encounter for immunization
CPT/HCPCS: 12001; 90471; 90715; 99282; 99284; J2003

== ENCOUNTER 2025-04-12 14:45 | Outpatient (AMB) | payer OTHER, SELFPAY ==
--- OUTSIDE RECORDS SUMMARY | 2024-12-01 09:40 | XMS_ITS ---
Author Organization [facility] Address [address] [place] [address] Care Team Providers Care Consumer Analyst Name Role Phone RAMIREZ NINO Primary Care Provider Tad Killian [phone] REASON FOR VISIT COLON SCREENING Encounters Encounter Location Date Provider Diagnosis [facility] [address] [facility] [address] [place] [address] 12/01/2024 Tad Umana Plan Of Treatment Next Appt Details Provider Name:Tad Umana , 07/04/2025 04:00:00 PM, [address] [facility], [address], [place], [address], Progress Notes * YOCASTA MORALESDOB:[birth year] (49 yo M)Acc No.[id number]:12/01/2024 Progress Notes Patient: YOCASTA YOUNG Provider: Rahul Umana MD :1975 A ge:49 Y S ex:Male Date:12/01/2024 Address:[address] [place], [place] [phone] Pcp:RAMIREZ NINO Subjective: * Chief Complaints: * [...] 0 12/01/2024 Generated for Vinayaki ng/Falakiag/eTransmitting on: 1 06:33 PM EDT
--- OUTSIDE RECORDS SUMMARY | 2025-03-07 10:20 | XMS_ITS ---
Author Organization [facility] Address [address] [place] [address] Care Team Providers Care Mold Changer Name Role Phone RAMIREZ NINO Primary Care Provider Tad Killian [facility] [phone] REASON FOR VISIT Patient presents today for a COLON SCREENING Encounters Encounter Location Date Provider Diagnosis [facility] [address] [place] [address] 03/07/2025 Tad Umana Plan Of Treatment Next Appt Details Provider Name:Tad Umana , 07/04/2025 04:00:00 PM, [address], [address], [place], [address], Progress Notes * YOCASTA MORALESDOB:[birth year] (49 yo M)Acc No.[id number]:03/07/2025 Progress Notes Patient: YOCASTA YOUNG Provider: Rahul Umana MD :1975 A ge:49 Y S ex:Male Date:03/07/2025 Address:[address] [place], [place] [phone] Pcp:RAMIREZ NINO Subjective: * Chief Complaints: * [...] Umana MD Date: 0 03/07/2025 Generated for Vinayaki ng/Falakiag/eTransmitting on: 1 06:34 PM EDT
[2025-04-12 14:50] VITALS: BMI 35.9
--- NOTE | 2025-04-12 14:50 | A.OFFVIS_ITS ---
Vital Signs 04/12/25 14:50 Height 5 ft 10 in Weight 250 lb BMI 35.9 Intake Visit Reasons: ED- Left hand Laceration Intake Note: Ricardo is a 49 year old right hand dominant male, new patient, who presents today for evaluation of a Left Hand Laceration, DOI: 04/10/25. Patient presented to [facility] reporting he was stabbed himself while attempting to remove an avocado pit. At the ED, 7 sutures were placed between his left middle and index finger. Patient reported decreased sensation to the radial aspect of the left ring finger prior to being numbed for suture placement. Pt states he is still experiencing that numbness sensation. Pt denies any discharge from the laceration. Allergies No Known Allergies (No Known Allergies*) Allergy (Verified 04/13/25 08:03) [facility] ED- Left hand Laceration: Details: Ricardo is a 49 year old right hand dominant male, new patient, who presents today for evaluation of a Left Hand Laceration, DOI: 04/10/25. Patient presented to [facility] reporting he was stabbed himself while attempting to remove an avocado pit. At the ED, 7 sutures were placed between his left middle and index finger. Patient reported decreased sensation to the radial aspect of the left ring finger prior to being numbed for suture placement. Pt states he is still experiencing that numbness sensation. Pt denies any discharge from the laceration. [facility] Medical History (Updated 04/24/25 @ 11:52 by LISSETT Chin) Heart palpitations Atypical chest pain HTN (hypertension) Hyperlipemia AL (obstructive sleep apnea) Obesity Surgical History History of excision of mass (12/03/22) Family History (Updated 10/30/24 @ 08:19 by RAISSA Tapia) Mother Emphysema lung Anemia Thyroid disease Father Diabetes High cholesterol Social History (Updated 04/24/25 @ 11:44 by Shani Reddy) Housing: House Alcohol intake: former Year quit: 2019 Patient Tobacco Use Status: Never used Tobacco Substance Use Type: Marijuana service: No Current occupational status: employed 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 Neuro: Diminished sensation to the ulnar aspect of the left middle finger Normal sensation of the tips of all other digits of the left hand at this time Vascular: Cap refill brisk Pain: No tenderness to palpation about laceration site ROM: Patient is able to actively flex and extend at all joints of the left middle finger Skin: Laceration noted of the volar aspect of the left middle finger Sutures in place General: No ecchymosis, erythema, or evidence of infection. Psych: Appears grossly normal Affect normal Attitude cooperative Assessment & Plan Assessment & Plan (1) Laceration of left middle finger: Code(s): S61.213A - Laceration without foreign body of left middle finger without damage to nail, initial encounter Category: Medical Plan 1. Laceration of the left middle finger Date of injury 04/11/2025 Patient is educated about this condition Patient is educated about the typical recovery course Sutures not able to be removed at this time No evidence of tendon injury at this time Patient is educated that normal sensation may or may not return to the left middle finger, as it is possible that he lacerated the nerve Patient is educated that we can try to repair this nerve, but the patient declines this Follow-up in 1-2 weeks for wound check, sooner with any acute concerns Coding Level of Care Code New Pt Level 3 (69109) Diagnoses Laceration of left middle finger S61.213A
--- OUTSIDE RECORDS SUMMARY | 2025-04-12 18:34 | XMS_ITS | Patient Health Record ---
Author Organization [facility] Address [address] [place] [address] Care Team Providers Care Panama Hat Hydraulic Press Operator Name Role Phone RAMIREZ NINO Primary Care Provider Tad Killian Unavailable [phone] Reason For Referral No Information Plan Of Treatment Next Appt Details Provider Name:Tad Umana , 07/04/2025 04:00:00 PM, [address], [address], [place], [address], Insurance Providers Payer Name Payer Address Payer Phone Subscriber Number Group Number Insured Name Patient Relationship to Insured Coverage Start Date Coverage End Date [facility] [address] [place] [phone] [id number] YOCASTA MORALES Self - patient is the insured
== END 2025-04-12 15:45 | disposition home or self-care (01) ==
LOC: HO.HOS 14:46
PROVIDERS: PCP Physician Assistant
DX: S61.213A Laceration without foreign body of left middle finger without damage to nail, initial encounter (principal)
CPT/HCPCS: 99203

== ENCOUNTER 2025-04-13 08:01 | Outpatient (AMB) | payer OTHER, SELFPAY ==
--- OUTSIDE RECORDS SUMMARY | 2024-12-01 09:40 | XMS_ITS ---
Author Organization [facility] Address [address] [place] [address] Care Team Providers Care Mainframe Systems Programmer Name Role Phone RAMIREZ NINO Primary Care Provider Tad Killian [phone] REASON FOR VISIT COLON SCREENING Encounters Encounter Location Date Provider Diagnosis [facility] [address] [facility] [address] [place] [address] 12/01/2024 Tad Umana Plan Of Treatment Next Appt Details Provider Name:Tad Umana , 07/04/2025 04:00:00 PM, [address] [facility], [address], [place], [address], Progress Notes * YOCASTA MORALESDOB:[birth year] (49 yo M)Acc No.[id number]:12/01/2024 Progress Notes Patient: YOCASTA YOUNG Provider: Rahul Umana MD :1975 A ge:49 Y S ex:Male Date:12/01/2024 Address:[address] [place], [place] [id number] Pcp:RAMIREZ NINO Subjective: * Chief Complaints: * [...] MD Date: 0 12/01/2024 Generated for Vinayaki reyna/Falakiag/eTransmitting on: 1 08:15 AM EDT
--- OUTSIDE RECORDS SUMMARY | 2025-03-07 10:20 | XMS_ITS ---
Author Organization [facility] Address [address] [place] [address] Care Team Providers Care Director Of Litigation Name Role Phone RAMIREZ NINO Primary Care Provider Tad Killian [facility] [phone] REASON FOR VISIT Patient presents today for a COLON SCREENING Encounters Encounter Location Date Provider Diagnosis [facility] [address] [place] [address] 03/07/2025 Tad Umana Plan Of Treatment Next Appt Details Provider Name:Tad Umana , 07/04/2025 04:00:00 PM, [address], [address], [place], [address], Progress Notes * YOCASTA MORALESDOB:[birth year] (49 yo M)Acc No.[id number]:03/07/2025 Progress Notes Patient: YOCASTA YOUNG Provider: Rahul Umana MD :1975 A ge:49 Y S ex:Male Date:03/07/2025 Address:[address] [place], [place] [phone] Pcp:RAMIREZ NINO Subjective: * Chief Complaints: * [...] MD Date: 0 03/07/2025 Generated for Vinayaki reyna/Falakiag/eTransmitting on: 1 08:16 AM EDT
--- NOTE | 2025-04-13 08:03 | A.OFFPC_ITS ---
Vital Signs 04/13/25 08:04 Height 5 ft 10 in Weight 206 lb 4 oz BMI 29.6 BP 124/84 Blood Pressure Location Lt brachial Position Sitting Respiration 16 Pulse 68 Pulse Source Pulse Oximeter Temp 97.6 F Temp Source Oral Pulse Oximetry (%) 96 Oxygen Delivery Method Room Air Intake Visit Reasons: ED f/u for heart pounding Management Scientist Required: No Accompanied by: Self / Same As Patient Allergies No Known Allergies (No Known Allergies*) Allergy (Verified 04/13/25 08:03) Tobacco use date assessed: 10/30/24 Dental Screening Dental Screen Date: 10/30/24 HPI HPI Comments History of Present Illness Details The patient is a 49-year-old male presenting with palpitations and hypertension. 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 The patient noted they forgot to take their prescribed blood pressure medication, Losartan. Historically, the patient has issues with high blood pressure, describing periods of hypertension with elevated numbers. The patient called Dr. Carrillo?s office due to concern and was advised to visit the emergency room if the symptoms persisted. Upon examination at the emergency department, the patient's initial blood pressure reading was 167/109 mmHg. Medical personnel conducted various tests, including x-rays and an EKG, all concluding within normal limits. The patient reported that currently, their blood pressure measured at 124/84 mmHg during the visit. They experienced no ongoing chest pain currently but had prior intermittent episodes of palpitations, typically resolving spontaneously. The patient attributed a recent episode to increased caffeine intake after drinking black coffee for an early shift, which could have exacerbated the condition. Medical History: - Hypertension - Hyperlipidemia Medications: - Atorvastatin 10 mg for hyperlipidemia - Losartan 50 mg for hypertension - Valacyclovir, as needed Family History: - Father: No known diseases, described a s healthy - Mother: Emphysema due to smoking; no d iabetes or other conditions noted Diagnostic Results: - Cardiac tests (x-ray and EKG) at [facility] ency department: Normal results - Blood pressure at emergency visit: 167 /109 mmHg - Current blood pressure: 124/84 mmHg Social History: - Family status: [facility] Medical History (Updated 04/13/25 @ 08:45 by Jeffry Bella MD) Heart palpitations Atypical chest pain HTN (hypertension) Hyperlipemia AL (obstructive sleep apnea) Obesity Surgical History History of excision of mass (12/03/22) Family History (Updated 10/30/24 @ 08:19 by RAISSA Tapia) Mother Emphysema lung Anemia Thyroid disease Father Diabetes High cholesterol Social History Housing: House Alcohol intake: former Year quit: 2019 Patient Tobacco Use Status: Never used Tobacco Substance Use Type: Marijuana service: No Current occupational status: employed Cognitive needs: No Hearing needs: No Vision needs: No Questionnaire Thrive Questionnaire Date Thrive assessed: 10/30/24 KIMI-7 AMB Questionnaire KIMI-7 Date KIMI - 7 assessed: 10/30/24 Source: Developed by Drs. Tad Reid, Monica Guerrier, Nain Noguera and colleagues, with an educational deepak from behaview. Review of Systems Narrative - Cardiovascular: Reports palpitations - General: Reports episodes resolve spontaneously, denies current episodes - Psychological: States feeling paranoid about blood pressure All systems reviewed & are unremarkable except as reviewed in HPI and above Physical exam (Primary Care) Vital Signs: Last Vital Signs Temp 97.6 F 04/13/25 08:04 Pulse 68 04/13/25 08:04 Resp 16 04/13/25 08:04 BP 124/84 04/13/25 08:04 Pulse Ox 96 04/13/25 08:04 Oxygen Delivery Method Room Air 04/13/25 08:04 BMI result Body Mass Index 29.6 Tobacco/Smoking Status: Tobacco use Status Tobacco use date assessed 10/30/24 04/13/25 08:08 Patient Tobacco Use Status Never used Tobacco 04/13/25 08:08 Thrive Assessment: Date of Thrive Assessment Date Thrive assessed 10/30/24 04/13/25 08:08 Narrative General: Alert and oriented, Well nourished, No acute distress. Eye: Pupils are equal, round and reactive to light, Intact accommodation, Extraocular movements are intact, Normal conjunctiva, Vision unchanged. HENT: Normocephalic, Atraumatic, Tympanic membranes are clear, Normal hearing, Oral mucosa is moist, No pharyngeal erythema, Ear canals patent. Respiratory: Lungs CTA bilaterally, No wheeze, Respirations are non-labored. Cardiovascular: Regular rate, Regular rhythm, S1 auscultated, S2 auscultated, No murmur, Good pulses equal in all extremities, Normal peripheral perfusion, No edema. Gastrointestinal: Soft, Non-tender, Non-distended, Normal bowel sounds, No organomegaly. Musculoskeletal: Normal range of motion, Normal strength, No tenderness, No swelling, No deformity, Normal gait. Integumentary: Warm, Dry, [place], Intact. Neurologic: Alert, Oriented, Normal sensory, Normal motor function, No focal defects, Cranial Nerves II-XII are grossly intact, Normal deep tendon reflexes. Psychiatric: Cooperative, Appropriate mood & affect, Normal judgment. Coding Level of Care Code Est Pt Level 4 (40359) Complex EM visit Add On G2211 Diagnoses Heart palpitations R00.2 Primary hypertension I10 Hypertension type: primary hypertension Other hyperlipidemia E78.49 Hyperlipidemia type: other hyperlipidemia Assessment & Plan Assessment & Plan (1) Heart palpitations: Comment: - Discussed the possible correlation with caffeine consumption - EKG completed in Clinic - Sinus with a HR of 63 - Ordered Holter & TSH and adivsed patient to monitor heart rate when such events occur Code(s): R00.2 - Palpitations Category: Medical (2) HTN (hypertension): Comment: - Current regimen of Losartan continued; blood pressure currently stable - Re-evaluate blood pressure readings alongside regular monitoring Code(s): I10 - Essential (primary) hypertension Category: Medical Qualifiers: Hypertension type: primary hypertension Qualified Code(s): I10 - Essential (primary) hypertension (3) Hyperlipemia: Comment: - Continue current atorvastatin dose Code(s): E78.5 - Hyperlipidemia, unspecified Category: Medical Qualifiers: Hyperlipidemia type: other hyperlipidemia Qualified Code(s): E78.49 - Other hyperlipidemia Plan: Health Maintenance: - Reinforce reduction of caffeine intake as a preventive measure against palpitations - Blood pressure monitoring ongoing Patient was informed and verbally consented to the use of an ambient scribe for clinic note documentation during this visit. Plan I discussed with the patient the possible link between his palpitations and recent caffeine intake. We confirmed that results from previous emergency department evaluations were normal with no cause for concern. I reassured the patient about current blood pressure readings and attributed past incidence to possible anxiety and medication omission. Furthermore, we discussed initiating a Holter monitor test to provide additional data on triggers leading to palpitations. I reiterated the importance of limiting caffeine consumption and adhering to prescribed medication. Orders: Orders Complete Blood Count Auto Diff Today E78.5 - Hyperlipidemia, unspecified, I10 - Essential (primary) hypertension, R00.2 - Palpitations AMB EKG-In Office Today E78.5 - Hyperlipidemia, unspecified, I10 - Essential (primary) hypertension, R00.2 - Palpitations ECG 5 day holter monitor Today R00.2 - Palpitations TSH reflex Free T4 Today R00.2 - Palpitations Comprehensive Met. Panel Today E78.5 - Hyperlipidemia, unspecified, I10 - Essential (primary) hypertension, R00.2 - Palpitations Patient Instructions: - Continue taking Losartan and Atorvastatin as prescribed. - Limit caffeine intake to help reduce palpitations. - Monitor blood pressure regularly and report significant changes. - If palpitations recur and are concerning, return for evaluation earlier. - Expect a call to set up the Holter monitor test.
[2025-04-13 08:04] VITALS: BP 124/84; PULSE 68; RESP 16; TEMP 36.4; O2SAT 96; BMI 29.6
--- OUTSIDE RECORDS SUMMARY | 2025-04-13 08:16 | XMS_ITS | Patient Health Record ---
Author Organization [facility] Address [address] [place] [address] Care Team Providers Care Ethnology Teacher Name Role Phone RAMIREZ NINO Primary Care Provider Tad Killian Unavailable [phone] Reason For Referral No Information Plan Of Treatment Next Appt Details Provider Name:Tad Umana , 07/04/2025 04:00:00 PM, [address], [address], [place], [address], Insurance Providers Payer Name Payer Address Payer Phone Subscriber Number Group Number Insured Name Patient Relationship to Insured Coverage Start Date Coverage End Date [facility] [address] [place] [phone] [id number] YOCASTA MORALES Self - patient is the insured
== END 2025-04-13 08:46 | disposition home or self-care (01) ==
LOC: HO.HMCHD 08:02
PROVIDERS: PCP Physician Assistant; Visit Provider Student in an Organized Health Care Education/Training Program
DX: R00.2 Palpitations (principal); I10 Essential (primary) hypertension; E78.49 Other hyperlipidemia

== ENCOUNTER 2025-04-13 08:48 | Outpatient (REF) | payer OTHER, SELFPAY ==
--- OUTSIDE RECORDS SUMMARY | 2025-04-09 18:41 | XMS_ITS | Encounter Summary ---
Author Organization [facility] Address [address] [place] [address] Care Team Providers Care Child Care Attendant Name Role Phone Unknown, Pcp Primary Care Provider Unavailabl e Reason for Visit * Reason Comments Palpitations Encounter Details Date Type Department Care Team (Late st Contact Info) Description 04/09/2025 6:41 PM EDT - 04/09/2025 7:33 PM EDT Emergency [facility] [address] [place], [place] [phone] Ajay Haney MD [address] [place] [address] Presley Roche MD [address] [place] [id number] Palpitations (Primary Dx) Discharge Disposition: Home or Self Care Social History Tobacco Use Types Packs/Day Years Used Date Smoking Tobacco: Never Assessed Sex and Gender Information Value Date Recorded Sex Assigned at Not on file Legal Sex Male 11:44 AM EDT Gender Identity Not on file Sexual Orientation Not on file documented as of this encounter Last Filed Vital Signs Vital Sign Reading Time Taken Comments Blood Pressure 141/97 04/09/2025 7:25 PM EDT Pulse 59 04/09/2025 7:25 PM EDT Temperature 36.6 C (97.8 F) 04/09/2025 7:25 PM EDT Respiratory Rate 18 04/09/2025 7:25 PM EDT Oxygen Saturation 99% 04/09/2025 7:25 PM EDT Inhaled Oxygen Concentration - - Weight - - Height - - Body Mass Index - - documented in this encounter Discharge Instructions * Discharge Instructions* Ajay Haney MD - 04/09/2025 1:59 PM EDT You were evaluated for palpitations or another feeling of extra or missed heartbeats. Your physicalexamination, EKG, and any other test results were reassuring that there is not likely an emergent cause of your symptoms. Palpitations do not always mean that your heart is doing anything abnormal and are rarely dangerouseven if uncomfortable or strange. Occasionally, they may represent issues such as abnormal heart rhythms. Unfortunately, an ED evaluation cannot always identify abnormal heart rhythms as they can be present sometimes and absent at other times. For this reason, you should follow-up with your primary care physician within the next 2-3 days to discuss any further testing, such as at home heart monitoring. Talk with your doctor about a test with a device called a holter monitor, ziopatch, or similar to test your heart rhythm over a longer period of time. We are always happy to re-evaluate you. Please call your doctor or go to the ER if you feel you aregetting worse or have any concerns including: -fainting or losing consciousness suddenly and without any warning -persistent palpitations, chest pain, numbness, weakness, or sudden severe headache, double vision -difficulty breathing documented in this encounter ED Notes Only the most recent of 2 notes is shown. * Ajay Haney MD - 04/09/2025 2:00 PM EDT History Chief Complaint Patient presents with ??? Palpitations History of Present Illness The patient is a 49-year-old male with a history of hypertension who presented with palpitations. This morning, while driving, he experienced a sensation of his heart pounding irregularly, which prompted him to call 911. His blood pressure was recorded as 167/108 or 109, and he was subsequently transported to the hospital. Currently, he reports no palpitations and notes a slight improvement in his condition. He does not have shortness of breath or chest pain, but he did feel lightheaded. There has been no loss of consciousness, swelling, headaches, or vision problems. The patient is on losartan for hypertension and atorvastatin for cholesterol management. He has no known drug allergies and does not use tobacco or consume alcohol regularly. Previously, his blood pressure was monitored at home, but after being found normal by his doctor, he discontinued the use of the home monitoring device. His medication dosage has remained unchanged. SOCIAL HISTORY - No tobacco use - No regular alcohol use No past medical history on file. No past surgical history on file. No family history on file. No existing history information found. Social History Substance and Sexual Activity Drug Use Not on file Physical Exam BP (!) 185/124 Comment: RN Notified Pulse 67 Temp 97.2 ??F (36.2 ??C) (Temporal) Resp 22 SpO2 97% Physical Exam General Appearance: Appears well-nourished Vital signs: Vital signs reviewed HEENT: Moist mucous membranes, airway patent, no goiter Respiratory: Non-labored respirations Cardiovascular: Regular rate and rhythm, no murmur, pulses 2+ Extremities: Well perfused Skin: Warm and dry Neurological: Alert, at an appropriate baseline mental status Clinical Decision Support ED Course This patient will have further evaluation and management under our vertical care model. I will continue caring for this patient along with one of our advanced practice providers. Assessment & Plan 49-year-old male with resolved palpitations. Not consistent with a PE. No arrhythmia on EKG or physical exam. Differential: Electrolyte imbalance (check sodium, potassium, magnesium), heart strain (troponin test), overactive thyroid (TSH). ED Course: EKG regular rhythm, no arrhythmia. Blood work: Electrolytes, troponin, TSH. Final Assessment: Palpitations resolved, no arrhythmia. Blood work ordered. Clinical Impression: Palpitations, hypertension. Disposition: Follow-up with PCP for heart monitoring device (Holter monitor, Zio patch). Bring home BP cuff to next appointment. Patient Education:Explained palpitations, possible causes, reassurance, BP management, advised to bring home BP cuff to next appointment. Final disposition will be determined based on further ED course in the vertical model. This note may have been dictated using voice recognition software. Although an effort is made to correct any typographical errors, please forgive any that remain and recognize they may occasionally incorrectly change the apparent meaning of what is recorded. SPLIT / SHARED ABEL VISIT (MDM): I performed the substantive portion of the MDM in its entirety. I made and approved the care plan and took responsibility for the patient's management throughout the duration of my shift. If patient care continued beyond the completion of my shift, oversight was transferred to the oncoming attending physician. MDM Elements Performed: Summary of consult(s) and discussion(s) with other healthcare professional(s): Independent interpretation(s) of EKG, Xray, US, or CT: History obtained from an independent historian? Indicate reason: Non-BEM records, notes, and tests reviewed (specify note type): Indicate if/how SDOH impacted patient care: Management considered but not performed (meds, test, or obs/admission): ED Course as of 04/09/251907 Mon Apr 09, 2025 1339 EKG interp by me sinus rate 60s CELSA no acute ischemic injury pattern v2 j point elevation is non-specific. [JA] 7 Called reg so can d/c pt. Labs reassuring [SK] 1907 hs-TNI baseline: 4 [SK] 1907 hs TNI-2 hr: 4 [SK] 1907 TSH, High Sensitivity: 0.706 [SK] 1907 Will d/c pt with close PCP f/u and strict return precautions [SK] ED Course User Index [JA] Ajay Haney MD [SK] LISSETT Payan MD 04/09/25 1401 documented in this encounter Plan of Treatment Not on file documented as of this encounter Procedures Procedure Name Priority Date/Time Associated Diagnosis Comments X-RAY CHEST PA AND LATERAL STAT 04/09/2025 5:01 PM EDT HS-TNI (2 HR WITH 2 HR DELTA) STAT 04/09/2025 4:49 PM EDT HS-TNI BASELINE STAT 04/09/2025 1:56 PM EDT BASIC METABOLIC PANEL STAT 04/09/2025 1:56 PM EDT HC AUTO CBC WITH DIFF STAT 04/09/2025 1:56 PM EDT TSH REFLEX STAT 04/09/2025 1:56 PM EDT documented in this encounter Results * XR: Chest PA and Lateral (04/09/2025 5:01 PM EDT) Anatomical Region Laterality Modality Radiographic Soheila ging 04/09/2025 5:01 PM EDT Impressions 04/09/2025 5:08 PM EDT IMPRESSION: Normal chest xray for age. RADCAT Grade:RADCAT2: Routine result. Electronically signed: 04/09/2025 5:08 PM Otf Ricci M.D. Patient DOS:04/09/2025 4:55 PM Exam:[id number] X-RAY CHEST PA AND LATERAL Contributing Doctor: John 04/09/2025 5:08 PM EDT X-RAY CHEST PA AND LATERAL HISTORY: Chest Pain TECHNIQUE: Frontal and lateral views of the chest. COMPARISON: There is no prior study available for comparison. FINDINGS: Lines/tubes: None. Lungs: The lungs are well inflated and clear. There is no evidence of pneumonia or pulmonary edema. Pleura: There is no pleural effusion or pneumothorax. Heart and mediastinum: Normal for age and technique. Bones: No acute abnormality. Procedure Note Otf Ricci MD - 04/09/2025 X-RAY CHEST PA AND LATERAL HISTORY: Chest Pain TECHNIQUE: Frontal and lateral views of the chest. COMPARISON: There is no prior study available for comparison. FINDINGS: Lines/tubes: None. Lungs: The lungs are well inflated and clear. There is no evidence ofpneumonia or pulmonary edema. Pleura: There is no pleural effusion or pneumothorax. Heart and mediastinum: Normal for age and technique. Bones: No acute abnormality. IMPRESSION: Normal chest xray for age. RADCAT Grade:RADCAT2: Routine result. Electronically signed: 04/09/2025 5:08 PM Otf Ricci M.D. Patient DOS:04/09/2025 4:55 PM Exam:[id number] X-RAY CHEST PA AND LATERAL Contributing Doctor: us Ajay Haney MD IMG DIAGNOSTIC IMAGING ORDER DEREK Final Result * hs-TNI (2 hr with 2 hr DELTA) (04/09/2025 4:49 PM EDT) [facility] hs-TNI 2 hr 4 3 - 35 ng/L 04/09/2025 5:59 PM EDT [facility] Blood 04/09/2025 4:49 PM EDT 04/09/2025 5:20 PM EDT us Ajay Haney MD LAB BLOOD ORDERABLES Final R esult Performing Organization Address City/[facility]/ZIP Co de Phone Number [facility] [address] [place] [phone] [facility] [address] [place] [address] * TSH Reflex (04/09/2025 1:56 PM EDT) [facility] TSH, High Sensitivity 0.706 0.330 - 4.120 uIU/ML 04/09/2025 6:30 PM EDT [facility] Blood 04/09/2025 1:56 PM EDT 04/09/2025 5:39 PM EDT us Ajay Haney MD LAB BLOOD ORDERABLES Final R esult Performing Organization Address City/[facility]/ZIP Co de Phone Number [facility] [address] [place] [address] * hs-TNI baseline (04/09/2025 1:56 PM EDT) [facility] hs-TNI baseline 4 3 - 35 ng/L 04/09/2025 2:55 PM EDT [facility] Blood 04/09/2025 1:56 PM EDT 04/09/2025 2:06 PM EDT us Ajay Haney MD LAB BLOOD ORDERABLES Final R esult [facility] [address] [place] [address] [facility] [address] [place] [address] * (ABNORMAL) CBC WITH DIFF (04/09/2025 1:56 PM EDT) [facility] Signature WBC 6.1 4.2 - 10.0 [id number]/L 04/09/2025 2:17 PM EDT [facility] RBC 4.84 4.50 - 5.60 [id number]/ L 04/09/[facility]25 [facility] Hemoglobin 15.2 13.4 - 16.0 g/dL 04/09/2025 2:17 PM [facility] Hematocrit 43.0 41.2 - 51.0 % 04/09/2025 2:17 PM [facility] MCV 88.8 85.2 - 100.2 fL 04/09/2025 2:17 PM [facility] MCH 31.4 27.0 - 32.4 pg 04/09/2025 2:17 PM [facility] MCHC 35.3(H) 29.5 - 34.2 g/dL 04/09/2025 2:17 PM [facility] RDW 12.3 11.8 - 14.4 % 04/09/2025 2:17 PM [facility] Platelets 285 168 - 382 [id number]/L 04/09/2025 2:17 PM [facility] MPV 9.0(L) 9.6 - 12.5 fL 04/09/2025 2:17 PM [facility] NRBC % 0.0 -1.0 - 0.0 % 04/09/2025 2:17 PM [facility] NRBC (absolute) 0.0 [id number]/L 2:17 PM [facility] Immature Granulocytes % 0.2 % 04/09/2025 2:17 PM [facility] Immature Granulocytes (absolute) 0.0 0.0 - 0.1 [id number]/L 04/09/2025 2:17 PM [facility] Seg Neutrophil % 58.5 % 04/09/20 2:17 PM EDT [facility] Seg Neutrophil (absolute) 3.6 1.9 - 6.7 [id number]/L 04/09/2025 2:17 PM EDT [facility] Lymphocyte % 31.2 % 04/09/2025 2:17 PM EDT [facility] Lymphocyte (absolute) 1.9 1.0 - 3.3 [id number]/L 04/09/2025 2:17 PM EDT [facility] Monocyte % 7.4 % 04/09/2025 2:17 PM EDT [facility] Monocyte (absolute) 0.5 0.3 - 0.9 [id number]/L 04/09/2025 2:17 PM EDT [facility] Eosinophil % 2.0 % 04/09/2025 2:17 PM EDT [facility] Eosinophil (absolute) 0.1 0.0 - 0.4 [id number]/L 04/09/2025 2:17 PM EDT [facility] Basophil % 0.7 % 04/09/2025 2:17 PM EDT [facility] Basophil (absolute) 0.0 0.0 - 0.1 [id number]/L 04/09/2025 2:17 PM EDT [facility] 04/09/2025 1:56 PM EDT 04/09/2025 2:06 PM EDT us Ajay Haney MD LAB BLOOD ORDERABLES Final R esult [facility] [address] [place] [address] [facility] [address] [place] [phone] * (ABNORMAL) Basic Metabolic Panel (04/09/2025 1:56 PM EDT) Glucose 87 67 - 99 MG/DL 04/09/2025 2:55 PM EDT [facility] BUN 17 6 - 24 MG/DL 04/09/2025 2:55 PM EDT [facility] Creat Level 0.90 0.64 - 1.27 MG/DL 04/09/2025 2:55 PM EDT [facility] eGFR 106 >90 mL/min/1.7 3m exp2 04/09/2025 2:55 PM EDT [facility] Comment:Calculated using the CKD-epi 2020 race-free equation. BUN Creatinine Ratio 19 04/09/2025 2:55 PM EDT [facility] Sodium 140 135 - 145 MEQ/L 04/09/2025 2:55 PM EDT [facility] Potassium 4.2 3.6 - 5.1 MEQ/L 04/09/2025 2:55 PM EDT [facility] Chloride 104 98 - 110 MEQ/L 04/09/2025 2:55 PM EDT [facility] CO2 30(H) 20 - 29 MEQ/L 04/09/2025 2:55 PM EDT [facility] Anion Gap 6 3 - 13 04/09/2025 2:55 PM EDT [facility] Calcium 9.5 8.4 - 10.2 MG/DL 04/09/2025 2:55 PM EDT [facility] Blood 04/09/2025 1:56 PM EDT 04/09/2025 2:06 PM EDT us Ajay Haney MD LAB BLOOD ORDERABLES Final R esult [facility] [address] [place] [address] [facility] [address] [place] [address] documented in this encounter Visit Diagnoses Diagnosis Palpitations- Primary documented in this encounter Care Teams Child Care Attendant Relationship Specialty Start Date End Date Unknown, Pcp, Unknown Address Unknown [place] [address] PCP - General Internal Medicine 04/09/25 documented as of this encounter
--- OUTSIDE RECORDS SUMMARY | 2025-04-13 09:26 | XMS_ITS | Clinical Summary ---
Author Organization [facility] Address [address] [place] [address] Care Team Providers Care Suspect Artist Supervisor Name Role Phone Unknown, Pcp Primary Care Provider Unavailabl e Allergies No known active allergies Encounters Date Type Department Care Team Description 04/09/2025 6:41 PM EDT - 04/09/2025 7:33 PM EDT Emergency [facility] [address] [place] [phone] Ajay Haney MD Patel, Kunal G, MD [...] (#1) 2025 COVID-19 IMMUNIZATION (1 - 2 -25 season) 2025 ZOSTER VACCINE (1 of 2) [...] HS-TNI BASELINE STAT 04/09/2025 1:56 PM EDT HC AUTO [...] - 35 ng/L 04/09/2025 5:59 PM EDT [facility] Blood 04/09/2025 4:49 PM EDT 04/09/2025 5:20 PM EDT us Ajay Haney MD LAB BLOOD ORDERABLES Final R esult [facility] [address] [place] [id number] [place] [address] [place] [id number] * hs-TNI baseline (04/09/2025 1:56 PM EDT) hs-TNI baseline 4 3 - 35 ng/L 04/09/2025 2:55 PM EDT [facility] Blood 04/09/2025 1:56 PM EDT 04/09/2025 2:06 PM EDT Ajay Haney MD LAB BLOOD ORDERABLES Final R esult [facility] [address] [place] [address] [facility] [address] [place] [address] * (ABNORMAL) Basic Metabolic Panel (04/09/2025 1:56 PM EDT) Pathologist [facility] Glucose 87 67 - 99 MG/DL 04/09/2025 2:55 PM EDT [facility] BUN 17 6 - 24 MG/DL 04/09/2025 2:55 PM [facility] Creat Level 0.90 0.64 - 1.27 MG/DL 04/09/2025 2:55 PM [facility] eGFR 106 >90 mL/min/1.7 3m exp2 04/09/2025 2:55 PM [facility] Comment:Calculated using the CKD-epi 2020 race-free equation. BUN Creatinine Ratio 19 04/09/2025 2:55 PM [facility] Sodium 140 135 - 145 MEQ/L 04/09/2025 2:55 PM [facility] Potassium 4.2 3.6 - 5.1 MEQ/L 04/09/2025 2:55 PM [facility] Chloride 104 98 - 110 MEQ/L 04/09/2025 2:55 PM [facility] CO2 30(H) 20 - 29 MEQ/L 04/09/2025 2:55 PM [facility] Anion Gap 6 3 - 13 04/09/2025 2:55 PM [facility] Calcium 9.5 8.4 - 10.2 MG/DL 04/09/2025 2:55 PM EDT [facility] Blood 04/09/2025 1:56 PM EDT 04/09/2025 2:06 PM EDT us Ajay Haney MD LAB BLOOD ORDERABLES Final R esult [facility] [address] [place] [address] [facility] [address] [place] [address] * (ABNORMAL) CBC WITH DIFF (04/09/2025 1:56 PM EDT) WBC 6.1 4.2 - 10.0 h45nym5/L 04/09/2025 2:17 PM EDT [facility] RBC 4.84 4.50 - 5.60 u41lzl59/ L 04/09/2025 2:17 PM EDT [facility] Hemoglobin 15.2 13.4 - 16.0 g/dL 04/09/2025 2:17 PM EDT [facility] Hematocrit 43.0 41.2 - 51.0 % 04/09/2025 2:17 PM [facility] MCV 88.8 85.2 - 100.2 fL 04/09/2025 2:17 PM [facility] MCH 31.4 27.0 - 32.4 pg [facility] MCHC 35.3(H) 29.5 - 34.2 g/dL 04/09/2025 2:17 PM EDT [facility] RDW 12.3 11.8 - 14.4 % 04/09/2025 2:[facility] Platelets 285 168 - 382 e01mfn9/L 04/09/2025 2:17 PM [facility] MPV 9.0(L) 9.6 - 12.5 fL 04/09/2025 2:[facility] NRBC % 0.0 -1.0 - 0.0 % 04/09/2025 2:17 [facility] NRBC (absolute) 0.0 v79dtq1/L 2:17 PM EDT [facility] Immature Granulocytes % 0.2 % 04/09/2025 2:17 [facility] Immature Granulocytes (absolute) 0.0 0.0 - 0.1 s81fkf4/L 04/09/2025 2:17 PM EDT [facility] Seg Neutrophil % 58.5 % 04/09/20 2:17 PM EDT [facility] Seg Neutrophil (absolute) 3.6 1.9 - 6.7 s89spm4/L 04/09/2025 2:17 PM EDT [facility] Lymphocyte % 31.2 % 04/09/2025 2:17 PM [facility] Lymphocyte (absolute) 1.9 1.0 - 3.3 b56gpx0/L 04/09/2025 2:17 PM EDT [facility] Monocyte % 7.4 % 04/09/2025 2:17 PM EDT [facility] Monocyte (absolute) 0.5 0.3 - 0.9 p20lhq0/L 04/09/2025 2:17 PM EDT [facility] Eosinophil % 2.0 % 04/09/2025 2:17 PM [facility] Eosinophil (absolute) 0.1 0.0 - 0.4 n77brk2/L 04/09/2025 2:[facility] Basophil % 0.7 % 04/09/2025 2:17 PM EDT [facility] Basophil (absolute) 0.0 0.0 - 0.1 h35lzi1/L 04/09/2025 2:17 PM [facility] 04/09/2025 1:56 PM EDT 04/09/2025 2:06 PM EDT us Ajay Haney MD LAB BLOOD ORDERABLES Final R esult [facility] [address] [place], [place] [id number] [place] [address] [place] [address] * TSH Reflex (04/09/2025 1:56 PM EDT) TSH, High Sensitivity 0.706 0.330 - 4.120 uIU/ML 04/09/2025 6:30 PM EDT [facility] Blood 04/09/2025 1:56 PM EDT 04/09/2025 5:39 PM EDT us Ajay Haney MD LAB BLOOD ORDERABLES Final R esult [facility] [address] [place] [address] from Last 3 Months Insurance [place] [address] [id number] Care Teams Suspect Artist Supervisor Relationship Specialty Start Date End Date Unknown, Pcp, Unknown Address Unknown [place] [address] PCP - General Internal Medicine 04/09/25
[2025-04-13 11:40] LABS: MANUAL DIFF FLAG NO
[2025-04-13 11:57] LABS: Hematocrit 44.4 % (42.0-52.0); Hemoglobin 15.3 g/dl (14.0-18.0); Imm Gran Abs Auto 0.02 X10*3/uL (0.00-0.03); Imm Gran Pct Auto 0.3 % (0.0-0.4); Lymphocytes Absolute Auto 1.3 X10*3/uL (1.2-4.9); Mean Corpuscular HGB Conc 34.5 g/dl (31.0-36.0); Mean Corpuscular Hemoglobin 30.4 pg (27.0-33.0); Mean Corpuscular Volume 88.1 fL (80.0-98.0); NRBC Abs Auto 0.000 X10*3/uL (0.0-0.012); NRBC Pct Auto 0.0 /100WBC (0.0-0.2); Platelet Count 284 X10*3/uL (160-400); Red Blood Count 5.04 X10*6/uL (4.60-5.80); White Blood Count 5.7 X10*3/uL (4.8-10.8)
[2025-04-13 12:18] LABS: Alanine Aminotransferase 35 U/L (0-40); Albumin Level 4.6 g/dL (3.5-5.0); Alkaline Phosphatase 68 U/L (39-117); Anion Gap 11 (12-20); Aspartate Amino Transferase 23 U/L (5-37); Blood Urea Nitrogen 12 mg/dL (9-16); Calcium 9.3 mg/dL (8.4-10.2); Carbon Dioxide 29 mmol/L (22-29); Chloride 107 mmol/L (96-108); Estimated Glomerular Filt Rate > 60; Potassium 3.8 mmol/L (3.3-5.1); Sodium 143 mmol/L (135-145); Total Protein 6.8 g/dL (6.5-8.0)
== END 2025-04-13 08:49 | disposition home or self-care (01) ==
LOC: HO.10HDL 08:48
PROVIDERS: Visit Provider Student in an Organized Health Care Education/Training Program
DX: I10 Essential (primary) hypertension (principal); E78.5 Hyperlipidemia, unspecified; R00.2 Palpitations
CPT/HCPCS: 36415; 80053; 84443; 85025

== ENCOUNTER 2025-04-24 11:38 | Outpatient (AMB) | payer OTHER, SELFPAY ==
--- OUTSIDE RECORDS SUMMARY | 2024-12-01 08:40 | XMS_ITS ---
Author Organization [facility] Address [address] [place] [phone] Care Team Providers Care Parcel Post Carrier Name Role Phone RAMIREZ NINO Primary Care Provider Tad Killian [phone] REASON FOR VISIT COLON SCREENING Encounters Encounter Location Date Provider Diagnosis [facility] [address] [facility] [address] [place] [phone] 12/01/2024 Tad Umana Plan Of Treatment Next Appt Details Provider Name:Tad Umana , 07/04/2025 04:00:00 PM, [address] [facility], [address], [place], [address], Progress Notes * YOCASTA MORALESDOB:[birth year] (49 yo M)Acc No.[id number]:12/01/2024 Progress Notes Patient: YOCASTA YOUNG Provider: Rahul Umana MD :1975 A ge:49 Y S ex:Male Date:12/01/2024 Address:[address] [place], [place] [id number] Pcp:RAMIREZ NINO Subjective: * Chief Complaints: * 1 . COLON SCREENING. * Medical History: Objective: * Vitals: Assessment: Plan: * Treatment: * * The named appointment provid er may or may not be the originator of this progress note, and it is not deemed complete until electronically signed by the appointment provider. Sign off status: Pending * Provider: Rahul Umana MD Date: 0 12/01/2024 Generated for Lionel orellana/Slim/eTransmitting on: 06/24/2024 02:20 PM EST
--- OUTSIDE RECORDS SUMMARY | 2025-03-07 09:20 | XMS_ITS ---
Author Organization [facility] Address [address] [place] [address] Care Team Providers Care Wood Products Manufacturer Name Role Phone RAMIREZ NINO Primary Care Provider Tad Killian [facility] [phone] REASON FOR VISIT Patient presents today for a COLON SCREENING Encounters Encounter Location Date Provider Diagnosis [facility] [address] [place] [address] 03/07/2025 Tad Umana Plan Of Treatment Next Appt Details Provider Name:Tad Umana , 07/04/2025 04:00:00 PM, [address], [address], [place], [address], Progress Notes * YOCASTA MORALESDOB:[birth year] (49 yo M)Acc No.[id number]:03/07/2025 Progress Notes Patient: YOCASTA YOUNG Provider: Rahul Umana MD :1975 A ge:49 Y S ex:Male Date:03/07/2025 Address:[address] [place], [place] [id number] Pcp:RAMIREZ NINO Subjective: * Chief Complaints: * [...] 0 03/07/2025 Generated for Lionel orellana/Slim/eTransmitting on: 06/24/2024 02:21 PM EST
--- NOTE | 2025-04-24 11:39 | MHC.OFFVIS ---
Intake Visit Reasons: OV- Left hand Laceration Intake Note: Ricardo is a 49 year old right hand dominant male who presents today for follow up status post Left Hand Laceration, DOI: 04/10/25. At today's visit he states that the left ring and middle finger feels weak. He stated that he would like to go back to work and would like to discuss his options. Patient states that he would like to discuss at home exercises for his left hand. OV note on draft -DC Allergies No Known Allergies (No Known Allergies*) Allergy (Verified 04/13/25 08:03) HPI HPI OV- Left hand Laceration: Details: Ricardo is a 49 year old right hand dominant male who presents today for follow up status post Left Hand Laceration, DOI: 04/10/25. At today's visit he states that the left ring and middle finger feels weak. He stated that he would like to go back to work and would like to discuss his options. Patient states that he would like to discuss at home exercises for his left hand. OV note on draft -DC [facility] Medical History (Updated 04/24/25 @ 11:52 by LISSETT Chin) Heart palpitations Atypical chest pain HTN (hypertension) Hyperlipemia AL (obstructive sleep apnea) Obesity Surgical History History of excision of mass (12/03/22) Family History (Updated 10/30/24 @ 08:19 by RAISSA Tapia) Mother Emphysema lung Anemia Thyroid disease Father Diabetes High cholesterol Social History (Updated 04/24/25 @ 11:44 by Shani Reddy) Housing: House Alcohol intake: former Year quit: 2019 Patient Tobacco Use Status: Never used Tobacco Substance Use Type: Marijuana service: No Current occupational status: employed 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 Neuro: Normal sensation of the tips of all digits of the left hand at this time Vascular: Cap refill brisk Pain: Tenderness to palpation about laceration of the left middle finger ROM: Patient is able to actively flex and extend at all joints of the left middle finger Skin: Significant laceration noted of the dorsal aspect of the left middle finger General: No ecchymosis, erythema, or evidence of infection. Psych: Appears grossly normal Affect normal Attitude cooperative Assessment & Plan Assessment & Plan (1) Laceration of left middle finger: Code(s): S61.213A - Laceration without foreign body of left middle finger without damage to nail, initial encounter Category: Medical Plan 1. Laceration of the left middle finger No evidence of tendon injury Date of injury 04/11/2025 Patient appears to be recovering well from his injury Patient is educated about the typical recovery course Sutures removed, Steri-Strips applied At this time, due to the significance of his laceration and the nature of the patient's work, I feel it is best to hold the patient out of work until follow-up Therefore, patient will be held out of work until 2 week follow-up appointment Patient will follow-up in 2 weeks for wound check, sooner with any acute concerns Coding Level of Care Code Est Pt Level 3 (72253) Diagnoses Laceration of left middle finger S61.213A
--- OUTSIDE RECORDS SUMMARY | 2025-04-24 14:21 | XMS_ITS | Clinical Summary ---
Author Organization [facility] Address [address] [place] [address] Care Team Providers Care Senior Foreman Name Role Phone Unknown, Pcp Primary Care Provider Unavailabl e Allergies No known active allergies Encounters Date Type Department Care Team Description 04/09/2025 6:41 PM EDT - 04/09/2025 7:33 PM EDT Emergency [facility] [address] [place] [phone] Ajay Haney MD Patel, Kunal G, MD [...] - 35 ng/L 04/09/2025 5:59 PM EDT [facility] Blood 04/09/2025 4:49 PM EDT 04/09/2025 5:20 PM EDT us Ajay Haney MD LAB BLOOD ORDERABLES Final R esult LABORATORY [address] [place] [id number] [place] [address] [place] [id number] * hs-TNI baseline (04/09/2025 1:56 PM EDT) hs-TNI baseline 4 3 - 35 ng/L 04/09/2025 2:55 PM EDT [facility] Blood 04/09/2025 1:56 PM EDT 04/09/2025 2:06 PM EDT Ajay Haney MD LAB BLOOD ORDERABLES Final R esult LABORATORY [address] [place] [address] [facility] [address] [place] [address] * (ABNORMAL) Basic Metabolic Panel (04/09/2025 1:56 PM EDT) Pathologist [facility] Glucose 87 67 - 99 MG/DL 04/09/2025 2:55 PM EDT [facility] BUN 17 6 - 24 MG/DL [...] - 10.2 MG/DL 04/09/2025 2:55 PM EDT [facility] Blood 04/09/2025 1:56 PM EDT 04/09/2025 2:06 PM EDT us Ajay Haney MD LAB BLOOD ORDERABLES Final R esult LABORATORY [address] [place] [address] [facility] [address] [place] [address] * (ABNORMAL) CBC WITH DIFF (04/09/2025 1:56 PM EDT) WBC 6.1 4.2 - 10.0 o74cva3/L 04/09/2025 2:17 PM EDT [facility] RBC 4.84 4.50 - 5.60 f69rnw21/ L 04/09/2025 2:17 PM EDT [facility] Hemoglobin 15.2 13.4 - 16.0 g/dL 04/09/2025 2:17 PM EDT [facility] Hematocrit 43.0 41.2 - 51.0 % 04/09/2025 2:17 PM [facility] MCV 88.8 85.2 - 100.2 fL 04/09/2025 2:17 PM [facility] MCH 31.4 27.0 - 32.4 pg 04/[facility]25 [facility] MCHC 35.3(H) 29.5 - 34.2 g/dL 04/09/2025 2:17 PM EDT [facility] RDW 12.3 11.8 - 14.4 % 04/09/2025 2:[facility] Platelets 285 168 - 382 h86bzy0/L 04/09/2025 2:17 PM [facility] MPV 9.0(L) 9.6 - 12.5 fL 04/09/2025 2:[facility] NRBC % 0.0 -1.0 - 0.0 % 04/09/2025 2:[facility] NRBC (absolute) 0.0 u31tjy9/L 2:17 PM EDT [facility] Immature Granulocytes % 0.2 % 04/09/2025 2:[facility] Immature Granulocytes (absolute) 0.0 0.0 - 0.1 r70iyq5/L 04/09/2025 2:17 PM EDT [facility] Seg Neutrophil % 58.5 % 04/09/20 2:17 PM EDT [facility] Seg Neutrophil (absolute) 3.6 1.9 - 6.7 u34lih0/L 04/09/2025 2:17 PM EDT [facility] Lymphocyte % 31.2 % 04/09/2025 2:17 PM [facility] Lymphocyte (absolute) 1.9 1.0 - 3.3 f39qaj5/L 04/09/2025 2:17 PM EDT [facility] Monocyte % 7.4 % 04/09/2025 2:17 PM EDT [facility] Monocyte (absolute) 0.5 0.3 - 0.9 b99ixq7/L 04/09/2025 2:17 PM EDT [facility] Eosinophil % 2.0 % 04/09/2025 2:17 PM [facility] Eosinophil (absolute) 0.1 0.0 - 0.4 a65gaj8/L 04/09/2025 2:[facility] Basophil % 0.7 % 04/09/2025 2:17 PM EDT [facility] Basophil (absolute) 0.0 0.0 - 0.1 f82wqs6/L 04/09/2025 2:17 PM [facility] 04/09/2025 1:56 PM EDT 04/09/2025 2:06 PM EDT us Ajay Haney MD LAB BLOOD ORDERABLES Final R esult LABORATORY [address] [place], [place] [id number] [place] [address] [place] [address] * TSH Reflex (04/09/2025 1:56 PM EDT) TSH, High Sensitivity 0.706 0.330 - 4.120 uIU/ML 04/09/2025 6:30 PM EDT [facility] Blood 04/09/2025 1:56 PM EDT 04/09/2025 5:39 PM EDT us Ajay Haney MD LAB BLOOD ORDERABLES Final R esult [facility] [address] [place] [address] from Last 3 Months Insurance MEDICAID [address] [place] [address] [place] [id number] Care Teams Senior Foreman Relationship Specialty Start Date End Date Unknown, Pcp, Unknown Address Unknown [place] [address] PCP - General Internal Medicine 04/09/25
--- OUTSIDE RECORDS SUMMARY | 2025-04-24 14:21 | XMS_ITS | Patient Health Record ---
Author Organization [facility] Address [address] [place] [address] Care Team Providers Care Tinner Helper Name Role Phone RAMIREZ NINO Primary Care Provider Tad Killian Unavailable [phone] Reason For Referral No Information Plan Of Treatment Next Appt Details Provider Name:Tad Umana , 07/04/2025 04:00:00 PM, [address], [address], [place], [address], Insurance Providers Payer Name Payer Address Payer Phone Subscriber Number Group Number Insured Name Patient Relationship to Insured Coverage Start Date Coverage End Date [facility] [address] [place] [phone] [id number] YOCASTA MORALES Self - patient is the insured
== END 2025-04-24 14:07 | disposition home or self-care (01) ==
LOC: HO.HOS 11:38
PROVIDERS: PCP Physician Assistant
DX: S61.213A Laceration without foreign body of left middle finger without damage to nail, initial encounter (principal)
CPT/HCPCS: 99213

== ENCOUNTER → 2025-05-03 14:46 | Outpatient (REF) | payer OTHER, SELFPAY ==
--- OUTSIDE RECORDS SUMMARY | 2024-12-01 08:40 | XMS_ITS ---
Author Organization [facility] Address [address] [place] [address] Care Team Providers Care Emergency Spill Response Technician Name Role Phone RAMIREZ NINO Primary Care Provider Tad Killian [phone] REASON FOR VISIT COLON SCREENING Encounters Encounter Location Date Provider Diagnosis [facility] [address] [facility] [address] [place] [phone] 12/01/2024 Tad Umana Plan Of Treatment Next Appt Details Provider Name:Tad Umana , 07/04/2025 04:00:00 PM, [address] [facility], [address], [place], [address], Progress Notes * YOCASTA MORALESDOB:[birth year] (49 yo M)Acc No.[id number]:12/01/2024 Progress Notes Patient: YOCASTA YOUNG Provider: Rahul Umana MD :1975 A ge:49 Y S ex:Male Date:12/01/2024 Address:[address] [place], [place] [id number] Pcp:RAMIREZ NINO Subjective: * Chief Complaints: * [...] MD Date: 0 12/01/2024 Generated for Lionel orellana/Fasherie/eTransmitting on: 07/03/2024 06:02 PM EST
--- OUTSIDE RECORDS SUMMARY | 2025-03-07 09:20 | XMS_ITS ---
Author Organization [facility] Address [address] [place] [address] Care Team Providers Care Band Builder Name Role Phone RAMIREZ NINO Primary Care Provider Tad Killian [facility] [phone] REASON FOR VISIT Patient presents today for a COLON SCREENING Encounters Encounter Location Date Provider Diagnosis [facility] [address] [place] [address] 03/07/2025 Tad Umana Plan Of Treatment Next Appt Details Provider Name:Tad Umana , 07/04/2025 04:00:00 PM, [address], [address], [place], [address], Progress Notes * YOCASTA MORALESDOB:[birth year] (49 yo M)Acc No.[id number]:03/07/2025 Progress Notes Patient: YOCASTA YOUNG Provider: Rahul Umana MD :1975 A ge:49 Y S ex:Male Date:03/07/2025 Address:[address] [place], [place] [id number] Pcp:RAMIREZ NINO Subjective: * Chief Complaints: * 1 . Patient presents today for a COLON SCREENING. * Medical History: Objective: * Vitals: Assessment: Plan: * Treatment: * * The named appointment provid er may or may not be the originator of this progress note, and it is not deemed complete until electronically signed by the appointment provider. Sign off status: Pending * Provider: Rahul Umana MD Date: 0 03/07/2025 Generated for Lionel orellana/Slim/eTransmitting on: 07/03/2024 06:02 PM EST
--- OUTSIDE RECORDS SUMMARY | 2025-05-03 18:02 | XMS_ITS | Patient Health Record ---
Author Organization [facility] Address [address] [place] [address] Care Team Providers Care Health Physics Technician Name Role Phone RAMIREZ NINO Primary Care Provider Tad Killian Unavailable [phone] Reason For Referral No Information Plan Of Treatment Next Appt Details Provider Name:Tad Umana , 07/04/2025 04:00:00 PM, [address], [address], [place], [address], Insurance Providers Payer Name Payer Address Payer Phone Subscriber Number Group Number Insured Name Patient Relationship to Insured Coverage Start Date Coverage End Date [facility] [address] [place] [phone] [id number] YOCASTA MORALES Self - patient is the insured
== END ==
LOC: HO.CARD 14:46
PROVIDERS: PCP Student in an Organized Health Care Education/Training Program; Visit Provider Student in an Organized Health Care Education/Training Program
DX: R00.2 Palpitations (principal)
CPT/HCPCS: 93242

== ENCOUNTER → 2025-05-03 14:49 | Outpatient (BNV) | payer OTHER, SELFPAY | PROVIDERS: PCP Student in an Organized Health Care Education/Training Program; Visit Provider Internal Medicine | DX: I49.3 Ventricular premature depolarization (principal); I49.49 Other premature depolarization | CPT/HCPCS: 93248 ==

== ENCOUNTER 2025-05-07 11:43 | Outpatient (AMB) | payer OTHER, SELFPAY ==
--- NOTE | 2025-05-07 11:46 | A.OFFVIS_ITS ---
Intake Visit Reasons: OV:Left Middle Finger Laceration, DOI: 04/10/25 Intake Note: Ricardo is a 49 year old right hand dominant male who presents today for a Wound Check status post Left Middle Finger Laceration, DOI: 04/10/25. At his last visit, sutures removed and Steri-Strips were applied. Patient was also ins tructed to remain out of work until today's 2 week follow-up appointment. Patient complains of numbness on the ulnar aspect of the left middle finger. He has noticed improvement on his ROM. He is not taking pain medication at this time. Patient reports due to delay in paperwork, he has not been able to pay his electricity bill. Mirella is willing to work with him as long as we provide a letter stating his diagnosis and what heis being treated for. Allergies No Known Allergies (No Known Allergies*) Allergy (Verified 05/07/25 11:55) HPI HPI OV:Left Middle Finger Laceration, DOI: 04/10/25: Details: Ricardo is a 49 year old right hand dominant male who presents today for a Wound Check status post Left Middle Finger Laceration, DOI: 04/10/25. At his last visit, sutures removed and Steri-Strips were applied. Patient was also instructed to remain out of work until today's 2 week follow-up appointment. Patient complains of numbness on the ulnar aspect of the left middle finger, unchanged from previous evaluation. He has noticed improvement on his ROM. He is not taking pain medication at this time. Denies redness, swelling, discharge around the laceration site. Patient reports due to delay in paperwork, he has not been able to pay his electricity bill. Mirella is willing to work with him as long as we provide a letter stating his diagnosis and what heis being treated for. [facility] Medical History (Updated 04/24/25 @ 11:52 by LISSETT Chin) Heart palpitations Atypical chest pain HTN (hypertension) Hyperlipemia AL (obstructive sleep apnea) Obesity Surgical History History of excision of mass (12/03/22) Family History (Updated 10/30/24 @ 08:19 by RAISSA Tapia) Mother Emphysema lung Anemia Thyroid disease Father Diabetes High cholesterol Social History (Updated 04/24/25 @ 11:44 by Shani Reddy) Housing: House Alcohol intake: former Year quit: 2019 Patient Tobacco Use Status: Never used Tobacco Substance Use Type: Marijuana service: No Current occupational status: employed 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 Neuro: Normal sensation of the tips of all digits of the left hand at this time Vascular: Cap refill brisk Pain: No further Tenderness to palpation about laceration of the left middle finger ROM: Patient is able to make a closed fist and extend all digits of the left hand fully and without difficulty Skin: Healed laceration noted of the ulnar aspect of the base of the left middle finger General: No ecchymosis, erythema, or evidence of infection. Psych: Appears grossly normal Affect normal Attitude cooperative Assessment & Plan Assessment & Plan (1) Laceration of left middle finger: Code(s): S61.213A - Laceration without foreign body of left middle finger without damage to nail, initial encounter Category: Medical Plan 1. Laceration of the left middle finger No evidence of tendon injury Date of injury 04/11/2025 Patient appears to be recovering well from his injury Patient is educated about the typical recovery course Laceration appears very well healed, no concerns for infection or tendon injury Patient is educated that it is likely that sensation will not return to the ulnar aspect of the left middle finger, as it is likely that he cut the nerve I do feel it is safe for the patient to return to work at this time, is given a note stating he is cleared to return full duty tomorrow Patient is also provided with a note stating that he was not able to work due to this laceration Patient understands this and is amenable to this plan Follow-up as needed with any acute concerns Coding Level of Care Code Est Pt Level 3 (11859) Diagnoses Laceration of left middle finger S61.213A
== END 2025-05-07 12:04 | disposition home or self-care (01) ==
LOC: HO.HOS 11:43
PROVIDERS: PCP Physician Assistant
DX: S61.213A Laceration without foreign body of left middle finger without damage to nail, initial encounter (principal)
CPT/HCPCS: 99213